=== PATIENT | female | born 1990 | race Caucasian/White ===

== ENCOUNTER 2024-01-11 14:49 | Outpatient (OUT) | payer BC, SELFPAY ==
--- NOTE | 2024-01-11 | XR_ITS ---
The [address] [address] Patient Name: CHANDNI RHODES MRN: [id number] date: 1990 Sex: F Assigned Patient Location: Current Patient Location: Accession/Order Number: [id number] Exam Date: 01/11/2024 14:50 Report Date: 01/14/2024 07:57 At the request of: TITUS PABLO Procedure: XR ankle RT min 3V PROCEDURE: XR ankle RT min 3V COMPARISON: None. HISTORY: RIGHT ANKLE PAIN FINDINGS: BONES:No acute fracture or dislocation. Moderate plantar enthesopathic spurring of the calcaneus SOFT TISSUES:Negative. No visible soft tissue swelling. EFFUSION:None visible. OTHER: Negative. XR/XR ankle RT min 3V IMPRESSION: Plantar enthesopathic spurring of the calcaneus Electronically authenticated by: JOÃO VICTORIA Date: 01/14/2024 07:57
== END 2024-01-11 14:50 | disposition home or self-care (01) ==
PROVIDERS: Visit Provider Physician Assistant
DX: M25.571 Pain in right ankle and joints of right foot (principal); M77.31 Calcaneal spur, right foot
CPT/HCPCS: 73610

== ENCOUNTER 2024-05-23 06:42 | Emergency (ER) | payer BC, SELFPAY ==
[2024-05-23 06:46] VITALS: BP 169/86; PULSE 98; TEMP 37; O2SAT 98; BMI 71.9
--- NOTE | 2024-05-23 07:08 | PC.NURSE ---
patient was prepping frozen chicken and using butter knife when it slipped and she cut her left ring finger and pinky under side. minimal pain. patient has hand wrapped. cleansed with soap and water. unapproximated.
[2024-05-23] MEDS: LIDOCAINE/EPINEPHRINE/TETRACAINE 3 ML GEL.PF.APP 1.5 ML TOPICAL (07:55)
[2024-05-23] MEDS: LIDOCAINE HCL 1% 100 MG/10 ML MDV INJ (08:47)
--- NOTE | 2024-05-23 11:09 | ED.GENADUL1 ---
HPI HPI - General Adult General Chief complaint: Wound/Laceration Stated complaint: WOUND CHECK, UPPER LEFT EXTREMITY Time Seen by Provider: 05/23/24 07:16 Source: patient Mode of arrival: walk-in History of Present Illness HPI narrative: 33-year-old female to the emergency department with chief complaint of laceration. She was attempting to remove the Styrofoam bottom off some frozen chicken with a butter knife when she slipped and hit her fourth and fifth digits on her left hand. This occurred approximately 30 minutes prior to arrival. No other injuries. Tetanus up-to-date. Related Data Home Medications ?Medication ?Instructions ?Recorded ?Confirmed albuterol sulfate 90 mcg/actuation 2 puff inhalation Q4H PRN 05/23/24 05/23/24 aerosol inhaler shortness of breath or wheezing dextroamphetamine-amphetamine ER 20 mg PO DAILY 05/23/24 05/23/24 20 mg 24hr capsule,extend release norgestimate 0.25 mg-ethinyl 1 tab PO DAILY 05/23/24 05/23/24 estradiol 35 mcg tablet (Geeta) sertraline 100 mg tablet 100 mg PO DAILY 05/23/24 05/23/24 Allergies Allergy/AdvReac Type Severity Reaction Status Date / Time No Known Drug Allergies Allergy Verified 05/23/24 06:50 Opioid HPI Opioid Management Most Recent Opioid Data: Last Pain Scale 3 05/23/24 07:06 05/23/24 Review of Systems ROS Status of ROS 10 or more systems reviewed and unremarkable except as noted in history and below Exam Narrative Exam Narrative: Left hand: There is a 1.2 cm linear laceration just distal to the PIP joint on the fifth digit. Extends into the fat. There is a 1.7 cm linear laceration just distal to the PIP joint on the fourth digit. Extends into the fat. Superficial and deep flexor tendons are intact by functional testing in each digit. No active bleeding. No foreign bodies. Constitutional Vital Signs, click to edit/add: Last Vital Signs Temp 98.6 F 05/23/24 06:46 Pulse 98 H 05/23/24 06:46 Resp 18 05/23/24 06:46 BP 169/86 H 05/23/24 06:46 Pulse Ox 98 05/23/24 06:46 O2 Del Method Room Air 05/23/24 06:46 Course Vital Signs Vital signs: Vital Signs Temperature 98.6 F 05/23/24 06:46 Pulse Rate 98 H 05/23/24 06:46 Respiratory Rate 18 05/23/24 06:46 Blood Pressure 169/86 H 05/23/24 06:46 Pulse Oximetry 98 05/23/24 06:46 Oxygen Delivery Method Room Air 05/23/24 06:46 Temperature 98.6 F 05/23/24 06:46 Pulse Rate 98 H 05/23/24 06:46 Respiratory Rate 18 05/23/24 06:46 Blood Pressure 169/86 H 05/23/24 06:46 Pulse Oximetry 98 05/23/24 06:46 Oxygen Delivery Method Room Air 05/23/24 06:46 Medical Decision Making MDM Narrative Medical decision making narrative: 33-year-old female to the emergency department chief complaint of lacerations to her fourth and fifth digits on her left hand. Vital stable, the patient is afebrile. Lacerations were repaired uneventfully. Her flexor tendons are intact. No bleeding. Wounds were irrigated thoroughly. No evidence of infection or foreign body. Discussed wound care. Placed in a foam aluminum splint to protect the sutures for the first 48 hours. She will follow-up with her doctor or ER for repeat evaluation. Discussed signs of infection and return. All questions were answered. The patient was discharged home. Medical Records Medical records reviewed: Yes I reviewed the patient's medical records Discharge Plan Discharge Chief Complaint: Wound/Laceration Clinical Impression: Laceration Patient Disposition: Home, Self-Care Time of Disposition Decision: 09:06 Condition: Good Mode of Transportation: Private Vehicle Prescriptions / Home Meds: No Action norgestimate-ethinyl estradiol [Geeta] 0.25-35 mg-mcg tablet 1 tab PO DAILY sertraline 100 mg tablet 100 mg PO DAILY dextroamphetamine-amphetamine 20 mg capsule,extended release 24hr 20 mg PO DAILY albuterol sulfate 90 mcg/actuation HFA aerosol inhaler 2 puff INHALATION Q4H PRN (Reason: shortness of breath or wheezing) Print Language: Romanian Instructions: Care For Your Stitches (ED) Additional Instructions: Keep original bandage on for 48 hours after which the wound may be open to the air. You may gently clean the site with soap and water twice daily after 48 hours. You can apply anti-bacterial ointment to the wound twice daily after cleaning. Do not go swimming until sutures are removed and wound has healed completely. rivet bucker cosmetic appearance of the wound will be best with decreased sun exposure and application of sunscreen for the first year following suture removal. Seek medical care if your wound develops increasing redness, warmth, swelling, or purulent discharge. Your sutures will need to be removed in 5-7 days by a healthcare provider so the wound can be re- examined. Referrals: Physician,Non-Staff, MD [Primary Care Provider] - 1 week Discharge Date/Time: 05/23/24 09:16 Procedures ED Procedure Instructions Procedures Procedures: Laceration Repair Verbal consent was obtained for laceration repair. Lidocaine infiltration for local anesthesia. Wound was cleansed and then irrigated with normal saline under pressure. Wound explored. No foreign bodies were identified. 3x 4-O simple interrupted sutures were used to repair the laceration on the fifth digit. 3x 4-O simple interrupted sutures were used to repair the laceration on the fourth digit. Adequate wound approximation was obtained. The patient tolerated the procedure well and there were no complications. Reuben Perez DO
== END 2024-05-23 09:16 | disposition home or self-care (01) ==
PROVIDERS: Emergency Provider Student in an Organized Health Care Education/Training Program
DX: S61.215A Laceration without foreign body of left ring finger without damage to nail, initial encounter (principal); S61.217A Laceration without foreign body of left little finger without damage to nail, initial encounter; W26.0XXA Contact with knife, initial encounter
CPT/HCPCS: 12002; 99284

== ENCOUNTER 2024-06-24 08:38 | Outpatient (OUT) | payer BC, SELFPAY ==
--- NOTE | 2024-06-24 | XR_ITS ---
The [address] [address] Patient Name: CHANDNI RHODES MRN: [id number] date: 1990 Sex: F Assigned Patient Location: Current Patient Location: Accession/Order Number: [id number] Exam Date: 06/24/2024 08:46 Report Date: 06/25/2024 06:59 At the request of: KRISTEN XIE Procedure: XR hand LT min 3V PROCEDURE: XR hand LT min 3V HISTORY: LEFT HAND PAIN ; no known injury COMPARISON: None. FINDINGS: BONES:No fracture, acute abnormality, or significant arthropathy. SOFT TISSUES:No visible soft tissue swelling. EFFUSION:None visible. OTHER: Negative. XR/XR hand LT min 3V IMPRESSION: 1. No acute bone abnormality or significant degenerative changes. Electronically authenticated by: KRISTEN CISNEROS Date: 06/25/2024 06:59
--- OUTSIDE RECORDS SUMMARY | 2024-06-24 08:49 | XMS_ITS | CCD ---
Author Organization [facility] Care Team Providers Care Broaching Machine Set Up Operator Name Role Phone PROVIDER, UNKNOWN Attending Unavailable PROVIDER, UNKNOWN Admitting Unavailable Arin Toure Unavailable MERVAT VAZQUEZ Admitting Unavailable MERVAT VAZQUEZ Attending Unavailable DR DAMARIS HICKMAN Primary Care Unavailable RAHUL VAZQUEZHLEEN Consulting Unavailable Rine, CFNP Michael L Primary Care Provider DO Mervat Vazquez Attending Provider Visckaren, Valdemar Admit Provider Visci DO Valdemar Attending Provider Rine CFNP Michael L Primary Care Provider ALEJANDRO Myers Attending Provider Rine, Michael L Primary Care Unavailable Justo Myers Admitting Unavailable Justo Myers Attending Unavailable Ishan, Michael L Primary Care Unavailable RinMervat arana Admitting Unavailable RinMervat arana Attending Unavailable Rine, Michael L Primary Care Unavailable Visci, Valdemar Admitting Unavailable Visci, Valdemar Attending Unavailable Rine RESEARCH LIBRARIAN Michael L Unavailable Unallocated, Noms Provider Primary Care Provider Unallocated , Noms Provider Primary Care Provi umair Justo Myers NP Unavailable Unallocated MD, Noms Provider Primary Care Provi umair Lorie-Genie SPANISH LITERATURE PROFESSOR-Stormy VALDERRAMA M Unavailable Unavailable Primary Care Provider UnavailRORY Anne Attending Unavailable JUSTO MYERS Attending Unavailable JUSTO MYERS Attending Unavailable STORMY MOY Attending Unavailab MICHAEL Cid Referring Unavailable JUSTO MYERS Attending Unavailable KEELY HAN Attending Unavailable MICHAEL HUTCHINSON Attending Unavailable JUSTO MYERS Attending Unavailable JUSTO MYERS Attending Unavailable MERVAT VAZQUEZ Attending Unavailable Allergies Allergy Classification Reported Allergen(s) Allergy Type Date of Onset Reaction(s) Facility (3 sources) Pollen; Translations: [pollen extracts] Allergy to substance 1 Sneezing [facility] (20 sources) Pollen Propensity to adverse reactions 3 Other [facility] (20 sources) Cat Hair Extract Allergy to substance 3 Unknown [facility] Work Phone: (20 sources) Dog Epithelium Allergy Skin Test Allergy to substance 3 Unknown [facility] (2 sources) Bee pollen; Translations: [BEE POLLEN] Drug Allergy 3 Unknown [facility] Work Phone: (2 sources) dog skin extract; Translations: [DOG EPITHELIUM ALLERGENIC EXTRACT] Drug Allergy 3 Other [facility] Work Phone: (2 sources) Cat Dander; Translations: [CAT DANDER] Allergy to substance 3 Unknown [facility] Work Phone: Medications Current Medications Medication Drug Class(es) Dates Sig (Normalized) Sig (Original) [id number] actuat albuterol 0.09 mg/actuat metered dose inhaler (20 sources) beta2-Adrenergic Agonist Start: 11-29-2023 End: 11-28-2024 take 2 puff(s) by inhalation every four hours for wheezing albuterol HFA (ProAir HFA) 90 mcg/act inhaler Indications: Acute cough Inhale 2 puffs every 4 (four) hours if needed for wheezing 18 g 11 11/29/2023 11/28/2024 Active ALPRAZolam 0.25 mg oral tablet (20 sources) Benzodiazepine Start: 03-20-2023 take 1 tablet by mouth once daily as needed for anxiety ALPRAZolam (Xanax) 0.25 MG tablet Indications: Anxiety attack (CMS/HCC) Take 1 tablet (0.25 mg) by mouth Daily as needed for anxiety. 30 tablet 03/20/2023 Active amoxicillin 875 mg / clavulanate 125 mg oral tablet (1 source) Penicillin-class Antibacterial Start: 06-05-2024 End: 06-12-2024 take 1 tablet by mouth twice daily amoxicillin-pot clavulanate (Augmentin) 875-125 mg tablet Indications: Rhinosinusitis Take 1 tablet by mouth 2 times a day for 7 days. 14 tablet 06/05/2024 06/12/2024 Active 24 hr amphetamine aspartate 7.5 mg / amphetamine sulfate 7.5 mg / dextroamphetamine saccharate 7.5 mg / dextroamphetamine sulfate 7.5 mg extended release oral capsule (20 sources) Central Nervous System Stimulant Start: 01-02-2024 End: 06-28-2024 take 1 capsule by mouth once daily amphetamine-dextro amphetamine XR (Adderall XR) 30 MG 24 hr capsule Indications: Attention deficit hyperactivity disorder (ADHD), predominantly inattentive type (CMS/HCC) Take 1 capsule (30 mg) by mouth Daily Do not crush or chew. 30 capsule 05/29/2024 06/28/2024 Active Start: 12-25-2023 End: 01-02-2024 take 1 capsule by mouth every twenty-four hours in the morning amphetamine-dextroamphetamine XR (Addera ll XR) 20 MG 24 hr capsule Indications: Attention deficit hyperactivity disorder (ADHD), predominantly inattentive type (CMS/HCC) Take 1 capsule (20 mg) by mouth in the morning. 30 capsule 12/25/2023 01/02/2024 Discontinued Start: 06-08-2023 take 1 capsule by mo [facility] every twenty-four hours in the morning amphetamine-dextroamphetamine XR (Addera ll XR) 20 MG 24 hr capsule Indications: Attention deficit hyperactivity disorder (ADHD), predominantly inattentive type (CMS/HCC) Take 1 capsule (20 mg) by mouth in the morning. 30 capsule 0 06/08/2023 Active take 1 tablet by sophia th twice daily Amphetamine-Dextroamphetamine 15 MG (Schedule II Drug) TAKE 1 TABLET TWICE A DAY Oral for 30 Not-Taking cetirizine hydrochloride 10 mg oral tablet (1 source) Histamine-1 Receptor Antagonist Start: 09-19-2021 take 1 tablet by mouth once daily Cetirizine HCl 10 MG 1 tablet Orally Once a day for 30 day(s) September, Active ethinyl estradiol 0.02 mg / norethindrone acetate 1 mg oral tablet (6 sources) Estrogen Start: 05-30-2024 End: 05-30-2025 norethindrone-ethinyl estradiol (Microgestin 06/03) 1-20 MG-MCG tablet Indications: Surveillance of contraceptive pill Take 1 tablet by mouth Daily Continuous active pills only 84 tablet 5 05/30/2024 05/30/2025 Active ethinyl estradiol 0.035 mg / norgestimate 0.25 mg oral tablet (4 sources) Progestin, Estrogen Start: 02-20-2024 End: 02-19-2025 take 1 tablet by mouth once daily norgestimate-ethinyl estradiol (Sprintec 28) 0.25-35 MG-MCG tablet Indications: Irregular menstrual cycle Take 1 tablet by mouth Daily 28 tablet 12 02/20/2024 03/21/2024 Discontinued ibuprofen 600 mg oral tablet (3 sources) Nonsteroidal Anti-inflammatory Drug Start: 11-18-2020 take 600 mg by mouth every six hours Ibuprofen Active 600 MG PO Q6H November 17, 2020 11:00pm methylPREDNISolone 4 mg oral tablet (1 source) Corticosteroid Start: 09-19-2021 methylPREDNISolone 4 MG as directed Orally Once a day for 6 days September, Active montelukast 10 mg oral tablet (20 sources) Leukotriene Receptor Antagonist Start: 11-10-2023 End: 11-09-2024 take 1 tablet by mouth at bedtime montelukast (Singulair) 10 MG tablet Indications: Acute cough Take 1 tablet (10 mg) by mouth at bedtime 30 tablet 11 11/10/2023 11/09/2024 Active Start: 11-16-2020 End: 10-16-2022 take 1 tablet by mouth once daily Montelukast (Singulair) 10 mg Tablet Discontinued 10 MG PO Daily November 15, 2020 11:00pm October 16, 2022 7:40pm Multiple Vitamin (multivitamin) tablet (15 sources) take 1 tablet by mouth once daily Multiple Vitamin (multivitamin) tablet Take 1 tablet by mouth Daily Active Viexnavr-Njc-Rc-Fa (3 sources) Start: 11-16-2020 take 1 tablet by mouth once daily Ohysblan-Rdd-Te-Fa Active TAB PO Daily November 15, 2020 11:00pm Start: 11-16-2020 take 1 tablet by sophia th once daily Vjkaqcbu-Rsf-Ga-Fa Active TAB PO Daily November 16, 2020 12:00am Start: 11-16-2020 take 1 tablet by mouth once Pr enatal Mqfaimkd-Izt-Ab-Fa Active TAB PO November 16, 2020 12:00am sertraline 100 mg oral tablet (20 sources) Serotonin Reuptake Inhibitor Start: 08-10-2023 End: 01-02-2024 take 1 tablet by mouth once daily sertraline (Zoloft) 100 MG tablet Indications: Anxiety Take 1 tablet (100 mg) by mouth Daily 90 tablet 1 01/02/2024 Active Start: 05-31-2023 End: 06-27-2023 sertraline (Zoloft) 50 MG ta blet Indications: Anxiety TAKE 1/2 TABLET AT BEDTIME FOR FIRST 4 NIGHTS,THEN 1 TABLET AT NIGHT THEREAFTER 90 tablet 1 06/27/2023 Active SUMAtriptan 25 mg oral tablet (11 sources) Serotonin-1b and Serotonin-1d Receptor Agonist Start: 03-21-2024 SUMAtriptan (Imitrex ) 25 MG tablet Indications: Chronic nonintractable headache, unspecified headache type Take 1 tablet (25 mg) by mouth 1 (one) time if needed for migraine for up to 9 doses May repeat dose once in 2 hours if no relief. Do not exceed 2 doses in 24 hours. 9 tablet 03/21/2024 Active Completed/Discontinued Medications Medication Drug Class(es) Dates Sig (Normalized) Sig (Original) breath-actuated 120 actuat beclomethasone dipropionate 0.08 mg/actuat metered dose inhaler (3 sources) Corticosteroid Start: 11-28-2023 End: 01-02-2024 Beclomethasone Diprop HFA (Qvar RediHaler) 80 MCG/ACT inhaler Indications: Acute cough Inhale 2 Inhalation in the morning and 2 Inhalation before bedtime. Rinse mouth with water after use to reduce aftertaste and incidence of candidiasis. Do not swallow.. 10.6 g 2 11/28/2023 01/02/2024 Discontinued (Therapy completed) loratadine 10 mg oral tablet (3 sources) End: 01-02-2024 loratadine (Claritin) 10 MG tablet Take by mouth Daily as needed for allergies 01/02/2024 Discontinued (Therapy completed) norethindrone 0.35 mg oral tablet (7 sources) Start: 03-21-2024 End: 03-21-2025 take 1 tablet by mouth once daily norethindrone (Micronor) 0.35 MG tablet Indications: Chronic nonintractable headache, unspecified headache type Take 1 tablet (0.35 mg) by mouth Daily 28 tablet 11 03/21/2024 05/30/2024 Discontinued (Ineffective) Suprep Bowel Prep . (1 source) Start: 11-23-2015 Suprep Bowel Prep . as directed Orally as directed for 1 day(s) Nov, Not-Taking traZODone hydrochloride 100 mg oral tablet (1 source) Serotonin Reuptake Inhibitor take 1 tablet by mouth every twenty-four hours traZODone HCl 100 MG 1 tablet at bedtime Orally Once a day Not-Taking venlafaxine 50 mg oral tablet (1 source) Serotonin and Norepinephrine Reuptake Inhibitor take 1 tablet by mouth twice daily at mealtime Effexor 50 MG 1 tablet with food Orally Twice a day Not-Taking Problems Active Problems Problem Classification Problem Date Documented Date Episodic/Chronic Anxiety disorders (20 sources) Anxiety; Translations: [Anxiety disorder, unspecified] Onset: 09-28-2022 Resolved: 02-19-2023 06-27-2023 Chronic Attention-deficit, conduct, and disruptive behavior disorders (20 sources) Attention deficit hyperactivity disorder; Translations: [Attention-deficit hyperactivity disorder, unspecified type] Onset: 09-28-2022 09-28-2022 Chronic Attention-deficit, conduct, and disruptive behavior disorders (9 sources) Attention deficit hyperactivity disorder, predominantly inattentive type; Translations: [Attention-deficit hyperactivity disorder, predominantly inattentive type] 03-01-2024 Chronic Contraceptive and procreative management (2 sources) Oral contraception; Translations: [Encounter for surveillance of contraceptive pills] 05-30-2024 Episodic Diabetes mellitus without complication (1 source) Other abnormal glucose; Translations: [Other abnormal glucose] Onset: 06-16-2023 Episodic Diabetes or abnormal glucose tolerance complicating ; childbirth; or the puerperium (4 sources) Abnormal glucose complicating ; Translations: [ABNORMAL GLUCOSE COMP ] Onset: 07-30-2022 Episodic Headache; including migraine (2 sources) Headache; Translations: [Chronic nonintractable headache, unspecified headache type] 03-21-2024 Episodic Immunizations and screening for infectious disease (4 sources) Needs influenza immunization; Translations: [Encounter for immunization] 02-15-2024 Episodic Other female genital disorders (3 sources) H/O: normal delivery; Translations: [Status post normal vaginal delivery] 10-17-2022 Episodic Other injuries and conditions due to external causes (2 sources) Injury of flexor tendon of hand; Translations: [Unspecified injury of other specified muscles, fascia and tendons at wrist and hand level, left hand, subsequent encounter] 06-17-2024 Episodic Other upper respiratory disease (1 source) Allergic rhinitis, unspecified Onset: 09-19-2021 Resolved: 09-19-2021 Chronic Other upper respiratory infections (3 sources) Chronic sinusitis, unspecified; Translations: [Unspecified sinusitis (chronic)] Onset: 06-05-2024 06-05-2024 Chronic Unclassified (1 source) Obesity complicating , third trimester; Translations: [Obesity complicating , third trimester] Onset: 10-16-2022 Unclassified (1 source) Encounter for screening for Streptococcus B; Translations: [Encounter for screening for Streptococcus B] Onset: 09-16-2022 Unclassified (20 sources) Patient on antidepressant monitoring plan Onset: 07-19-2023 07-19-2023 Unclassified (20 sources) Baseline PHQ-9 Onset: 07-19-2023 07-19-2023 Past or Other Problems Problem Classification Problem Date Documented Da te Episodic/Chronic Hemorrhage during ; abruptio placenta; placenta previa (20 sources) Bleeding from female genital tract during ; Translations: [Antepartum hemorrhage, unspecified, unspecified trimester] Onset: 08-07-2020 Resolved: 02-15-2024 08-29-2020 Episodic Hemorrhoids (20 sources) Internal hemorrhoids; Translations: [Other hemorrhoids] Onset: 09-28-2022 09-28-2022 Episodic Miscellaneous mental health disorders (20 sources) Primary insomnia; Translations: [Primary insomnia] Onset: 09-28-2022 Resolved: 01-02-2024 09-28-2022 Chronic Mood disorders (20 sources) Mood disorders Onset: 10-02-2023 10-02-2023 Nutritional deficiencies (20 sources) Vitamin D deficiency; Translations: [Vitamin D deficiency, unspecified] Onset: 09-28-2022 Resolved: 02-15-2024 09-28-2022 Chronic Other screening for suspected conditions (not mental disorders or infectious disease) (20 sources) Patient encounter status; Translations: [Encounter for other specified screening] Onset: 08-07-2020 Resolved: 02-19-2023 02-19-2023 Episodic Other upper respiratory disease (20 sources) Sinusitis; Translations: [Allergic rhinitis, unspecified] Onset: 02-17-2023 Resolved: 02-19-2023 02-19-2023 Chronic Other upper respiratory disease (20 sources) Seasonal allergic rhinitis; Translations: [Other seasonal allergic rhinitis] Onset: 09-28-2022 Resolved: 02-19-2023 02-19-2023 Chronic Residual codes; unclassified (1 source) 35 weeks gestation of ; Translations: [35 weeks gestation of ] Onset: 09-16-2022 Episodic Unclassified (1 source) Cough R05.9 Onset: 09-19-2021 Resolved: 09-19-2021 Results Test Name Value Interpretation Reference Range Facility A1C with Estimated Average G [facility] 06-16-2023 Glucose [Mass/Vol] 97 mg/dL Normal [facility] Comment on above: Order Comment: MC MYERS Result Comment: PERF ORMED BY: [facility] [address] [place] [address] PATHOLOGIST DISABILITIES CAREGIVER JONO MÉNDEZ M.D. Performed By: #### A 1C WTH eA, LIPID, [id number], CBC, CMP, TSH3 wRFLX #### [facility] [address] HbA1c (Bld) [Mass fraction] 5.0 % Normal 4.3-5.6 [facility] Comment on above: Order Comment: MC MYERS Result Comment: Incr eased risk for diabetes: 5.7 - 6.4 diabetes: >6.4 glycemic control for adults with diabetes: <7.0 Performed By: #### A 1C WTH eA, LIPID, [id number], CBC, CMP, TSH3 wRFLX #### [facility] [address] Alanine aminotransferase [En zymatic activity/volume] in Serum or PlasmaOrdered By: NON STAFF on 06-16-2023 ALT [Catalytic activity/Vol] 10 U/L 7-52 [facility] Albumin [Mass/volume] in Ser um or Plasma by Bromocresol green (BCG) dye binding methoOrdered By: NON STAFF on 06-16-2023 Albumin BCG dye [Mass/Vol] 4.6 g/dL 3.5-5.7 [facility] Alkaline phosphatase [Enzyma tic activity/volume] in Serum or PlasmaOrdered By: NON STAFF on 06-16-2023 ALP [Catalytic activity/Vol] 52 U/L 34-104 [facility] Aspartate aminotransferase [ Enzymatic activity/volume] in Serum or PlasmaOrdered By: NON STAFF on 06-16-2023 AST [Catalytic activity/Vol] 12 U/L 13-39 [facility] Basophils Auto (Bld) [#/Vol] Ordered By: NON STAFF on 06-16-2023 Basophils (Bld) [#/Vol] 0.1 10*3/uL 0.0-0.2 [facility] Basophils/100 WBC Auto (Bld) Ordered By: NON STAFF on 06-16-2023 Basophils/100 WBC (Bld) 1.2 % . [facility] Bilirubin.total [Mass/volume ] in Serum or PlasmaOrdered By: NON STAFF on 06-16-2023 Bilirubin [Mass/Vol] 0.9 mg/dL 0.3-1.0 [facility] Calcium [Mass/volume] in Ser um or PlasmaOrdered By: NON STAFF on 06-16-2023 Calcium [Mass/Vol] 9.5 mg/dL 8.6-10.3 [facility] Carbon dioxide, total [Moles /volume] in Serum or PlasmaOrdered By: NON STAFF on 06-16-2023 CO2 [Moles/Vol] 31.7 mmol/L 21.0-31.0 [facility] Chloride [Moles/volume] in [place] or PlasmaOrdered By: NON STAFF on 06-16-2023 Chloride [Moles/Vol] 103 mmol/L 98-107 [facility] Cholesterol [Mass/volume] in Serum or PlasmaOrdered By: NON STAFF on 06-16-2023 Cholesterol [Mass/Vol] 184 mg/dL 140-200 [facility] Comment on above: Chol less than 200 m g/dl low riskChol 201-239 mg/dl borderline riskChol 240 mg/dl and greater high risk Cholesterol in LDL Calc [Mas s/Vol]Ordered By: NON STAFF on 06-16-2023 Cholesterol in LDL [Mass/Vol] 120 mg/dL 0-100 [facility] Comment on above: LDL ATP III CLASSIFI CATIONLDL less than 100 mg/dL OptimalLDL 100-129 mg/dL Near or above optimalLDL 130-159 mg/dL Borderline highLDL 160-189 mg/dL HighLDL greater than 189 mg/dL Very high Cholesterol in VLDL Calc [Ma ss/Vol]Ordered By: NON STAFF on 06-16-2023 Cholesterol in VLDL [Mass/Vol] 18 mg/dL [facility] Complete Blood Count Auto Di ffon 06-16-2023 Basophils (Bld) [#/Vol] 0.1 10*3/uL Normal 0.0-0.2 [facility] Comment on above: Order Comment: MC MYERS Result Comment: PERF ORMED BY: [place] [address] PATHOLOGIST DISABILITIES CAREGIVER JONO MÉNDEZ M.D. Performed By: #### A 1C WTH eA, LIPID, [id number], CBC, CMP, TSH3 wRFLX #### [facility] [address] [place] [address] [place] Basophils/100 WBC (Bld) 1.2 % Normal . [facility] Comment on above: Order Comment: MC MYERS Performed By: #### A 1C WTH eA, LIPID, [id number], CBC, CMP, TSH3 wRFLX #### [facility] [address] [place] [address] Eosinophils (Bld) [#/Vol] 0.2 10*3/uL Normal 0.0-0.45 [facility] Comment on above: Order Comment: MC MYERS Performed By: #### A 1C WTH eA, LIPID, [id number], CBC, CMP, TSH3 wRFLX #### [address] Eosinophils/100 WBC (Bld) 2.2 % Normal . [facility] Comment on above: Order Comment: MC MYERS Performed By: #### A 1C WTH eA, LIPID, [id number], CBC, CMP, TSH3 wRFLX #### [address] Erythrocyte distribution width (RBC) [Ratio] 13.0 % Normal 11.9-15.3 [facility] Comment on above: Order Comment: MC MYERS Performed By: #### A 1C WTH eA, LIPID, [id number], CBC, CMP, TSH3 wRFLX #### [address] Hematocrit (Bld) [Volume fraction] 42.4 % Normal 34.0-46.4 [facility] Comment on above: Order Comment: MC MYERS Performed By: #### A 1C WTH eA, LIPID, [id number], CBC, CMP, TSH3 wRFLX #### [address] Hemoglobin (Bld) [Mass/Vol] 14.5 g/dL Normal 11.8-15.4 [facility] Comment on above: Order Comment: MC MYERS Performed By: #### A 1C WTH eA, LIPID, [id number], CBC, CMP, TSH3 wRFLX #### [address] Lymphocytes (Bld) [#/Vol] 1.6 10*3/uL Normal 1.00-4.8 [facility] Comment on above: Order Comment: MC MYERS Performed By: #### A 1C WTH eA, LIPID, [id number], CBC, CMP, TSH3 wRFLX #### [address] Lymphocytes/100 WBC (Bld) 22.4 % Normal . [facility] Comment on above: Order Comment: MC MYERS Performed By: #### A 1C WTH eA, LIPID, [id number], CBC, CMP, TSH3 wRFLX #### [address] MCH (RBC) [Entitic mass] 29.4 pg Normal 24.7-34.3 [facility] Comment on above: Order Comment: MC MYERS Performed By: #### A 1C WTH eA, LIPID, [id number], CBC, CMP, TSH3 wRFLX #### [address] MCV (RBC) [Entitic vol] 85.9 fL Normal 80-100 F [facility] Comment on above: Order Comment: MC MYERS Performed By: #### A 1C WTH eA, LIPID, [id number], CBC, CMP, TSH3 wRFLX #### [address] Mean Corpuscular HGB Conc 34.2 g/dL Normal 32.0-35.0 [facility] Comment on above: Order Comment: MC MYERS Performed By: #### A 1C WTH eA, LIPID, [id number], CBC, CMP, TSH3 wRFLX #### [address] Monocytes (Bld) [#/Vol] 0.4 10*3/uL Normal 0.0-0.8 [facility] Comment on above: Order Comment: MC MYERS Performed By: #### A 1C WTH eA, LIPID, [id number], CBC, CMP, TSH3 wRFLX #### [address] Monocytes/100 WBC (Bld) 5.9 % Normal . [facility] Comment on above: Order Comment: MC Carlene ESTHER Performed By: #### A 1C WTH eA, LIPID, [id number], CBC, CMP, TSH3 wRFLX #### [address] Neutrophils (Bld) [#/Vol] 5.0 10*3/uL Normal 1.8-7.7 [facility] Comment on above: Order Comment: MC Carlene ESTHER Performed By: #### A 1C WTH eA, LIPID, [id number], CBC, CMP, TSH3 wRFLX #### [address] Neutrophils/100 WBC (Bld) 68.3 % Normal . [facility] Comment on above: Order Comment: MC Carlene ESTHER Performed By: #### A 1C WTH eA, LIPID, [id number], CBC, CMP, TSH3 wRFLX #### [address] NRBC% 0.5 /100{WBC} Normal 0-0.5 [facility] Comment on above: Order Comment: MC Carlene ESTHER Performed By: #### A 1C WTH eA, LIPID, [id number], CBC, CMP, TSH3 wRFLX #### [address] Platelet mean volume (Bld) [Entitic vol] 8.1 fL Normal 6.3-10.7 [facility] Comment on above: Order Comment: MC MYERS Performed By: #### A 1C WTH eA, LIPID, [id number], CBC, CMP, TSH3 wRFLX #### [place] [address] [place] Platelets (Bld) [#/Vol] 393 10*3/uL Normal 150-450 [facility] Comment on above: Order Comment: MC Carlene ESTHER Performed By: #### A 1C WTH eA, LIPID, [id number], CBC, CMP, TSH3 wRFLX #### [place] [address] [place] RBC (Bld) [#/Vol] 4.94 10*6/uL Normal 3.60-5.00 [facility] Comment on above: Order Comment: MC MYERS Performed By: #### A 1C WTH eA, LIPID, [id number], CBC, CMP, TSH3 wRFLX #### [address] WBC (Bld) [#/Vol] 7.3 10*3/uL Normal 3.8-11.6 [facility] Comment on above: Order Comment: MC MYERS Performed By: #### A 1C WTH eA, LIPID, [id number], CBC, CMP, TSH3 wRFLX #### [address] Comprehensive Metabolic Pane hunter 06-16-2023 Albumin [Mass/Vol] 4.6 g/dL Normal 3.5-5.7 [facility] Comment on above: Order Comment: MC MYERS Performed By: #### A 1C WTH eA, LIPID, [id number], CBC, CMP, TSH3 wRFLX #### [address] Albumin/Globulin [Mass ratio] 1.8 {ratio} Normal [facility] Comment on above: Order Comment: MC MYERS Performed By: #### A 1C WTH eA, LIPID, [id number], CBC, CMP, TSH3 wRFLX #### [facility] [address] [place] [address] ALP [Catalytic activity/Vol] 52 U/L Normal 34-104 [facility] Comment on above: Order Comment: MC MYERS Performed By: #### A 1C WTH eA, LIPID, [id number], CBC, CMP, TSH3 wRFLX #### [address] ALT [Catalytic activity/Vol] 10 U/L Normal 7-52 [facility] Comment on above: Order Comment: MC MYERS Performed By: #### A 1C WTH eA, LIPID, [id number], CBC, CMP, TSH3 wRFLX #### [facility] [address] Anion gap [Moles/Vol] 8.8 mmol/L Normal 6.0-15.0 [facility] Comment on above: Order Comment: MC MYERS Performed By: #### A 1C WTH eA, LIPID, [id number], CBC, CMP, TSH3 wRFLX #### [facility] [address] AST [Catalytic activity/Vol] 12 U/L Low 13-39 [facility] Comment on above: Order Comment: MC MYERS Performed By: #### A 1C WTH eA, LIPID, [id number], CBC, CMP, TSH3 wRFLX #### [facility] [address] Bilirubin [Mass/Vol] 0.9 mg/dL Normal 0.3-1.0 [facility] Comment on above: Order Comment: MC MYERS Performed By: #### A 1C WTH eA, LIPID, [id number], CBC, CMP, TSH3 wRFLX #### [facility] [address] Calcium [Mass/Vol] 9.5 mg/dL Normal 8.6-10.3 [facility] Comment on above: Order Comment: [facility] MYERS Performed By: #### A 1C WTH eA, LIPID, [id number], CBC, CMP, TSH3 wRFLX #### [facility] [address] Chloride [Moles/Vol] 103 mmol/L Normal 98-107 [facility] Comment on above: Order Comment: [facility] MYERS Performed By: #### A 1C WTH eA, LIPID, [id number], CBC, CMP, TSH3 wRFLX #### [facility] [address] CO2 [Moles/Vol] 31.7 mmol/L High 21.0-31.0 [facility] Comment on above: Order Comment: [facility] MYERS Performed By: #### A 1C WTH eA, LIPID, [id number], CBC, CMP, TSH3 wRFLX #### [facility] [address] Creatinine [Mass/Vol] 0.76 mg/dL Normal 0.60-1.20 [facility] Comment on above: Order Comment: [facility] MYERS Performed By: #### A 1C WTH eA, LIPID, [id number], CBC, CMP, TSH3 wRFLX #### [facility] [address] GFR/1.73 sq M.predicted MDRD (S/P/Bld) [Vol rate/Area] mL/min/{1.73_m2} Normal [facility] Comment on above: Order Comment: [facility] MYERS Performed By: #### A 1C WTH eA, LIPID, [id number], CBC, CMP, TSH3 wRFLX #### [address] Globulin (S) [Mass/Vol] 2.6 g/dL Normal [facility] Comment on above: Order Comment: [facility] MYERS Performed By: #### A 1C WTH eA, LIPID, [id number], CBC, CMP, TSH3 wRFLX #### [address] Glucose [Mass/Vol] 99 mg/dL Normal 70-100 [facility] Comment on above: Order Comment: [facility] MYERS Result Comment: [place] Glucose Reference Range is dependent on time and content of last meal. Glucose of more than 200 mg/dL in a nonstressed, ambulatory subject supports the diagnosis of Diabetes Mellitus. ADA recommended reference range Performed By: #### A 1C WTH eA, LIPID, [id number], CBC, CMP, TSH3 wRFLX #### [address] Potassium [Moles/Vol] 4.5 mmol/L Normal 3.5-5.1 [facility] Comment on above: Order Comment: [facility] MYERS Performed By: #### A 1C WTH eA, LIPID, [id number], CBC, CMP, TSH3 wRFLX #### [facility] [address] [place] [address] [place] Protein [Mass/Vol] 7.2 g/dL Normal 6.4-8.9 [facility] Comment on above: Order Comment: [facility] MYERS Performed By: #### A 1C WTH eA, LIPID, [id number], CBC, CMP, TSH3 wRFLX #### [facility] [address] Sodium [Moles/Vol] 139 mmol/L Normal 136-145 [facility] Comment on above: Order Comment: [facility] MYERS Performed By: #### A 1C WTH eA, LIPID, [id number], CBC, CMP, TSH3 wRFLX #### [facility] [address] [place] [address] [place] Urea nitrogen [Mass/Vol] 16 mg/dL Normal 7-25 [facility] Comment on above: Order Comment: [facility] MYERS Performed By: #### A 1C WTH eA, LIPID, [id number], CBC, CMP, TSH3 wRFLX #### [facility] [address] Creatinine [Mass/volume] in Serum or PlasmaOrdered By: NON STAFF on 06-16-2023 Creatinine [Mass/Vol] 0.76 mg/dL 0.60-1.20 [facility] Eosinophils Auto (Bld) [#/Vo l]Ordered By: NON STAFF on 06-16-2023 Eosinophils (Bld) [#/Vol] 0.2 10*3/uL 0.0-0.45 [facility] Eosinophils/100 WBC Auto (Bl d)Ordered By: NON STAFF on 06-16-2023 Eosinophils/100 WBC (Bld) 2.2 % . [facility] Erythrocyte distribution wid th Auto (RBC) [Ratio]Ordered By: NON STAFF on 06-16-2023 Erythrocyte distribution width (RBC) [Ratio] 13.0 % 11.9-15.3 [facility] Globulin Calc (S) [Mass/Vol] Ordered By: NON STAFF on 06-16-2023 Globulin (S) [Mass/Vol] 2.6 g/dL [facility] Glucose [Mass/volume] in Ser um or PlasmaOrdered By: NON STAFF on 06-16-2023 Glucose [Mass/Vol] 99 mg/dL 70-100 [facility] Comment on above: ADA recommended refe rence rangeRandom Glucose Reference Range is dependent on time and content of last meal. Glucose of more than 200 mg/dL in a nonstressed, ambulatory subject supports the diagnosis of Diabetes Mellitus. Glucose mean value [Mass/vol ume] in Blood Estimated from glycated hemoglobinOrdered By: NON STAFF on 06-16-2023 Average glucose Estimated from glycated hemoglobin (Bld) [Mass/Vol] 97 mg/dL [facility] Hematocrit Auto (Bld) [Volum e fraction]Ordered By: NON STAFF on 06-16-2023 Hematocrit (Bld) [Volume fraction] 42.4 % 34.0-46.4 [facility] Hemoglobin A1c percentageOrd ered By: NON STAFF on 06-16-2023 HbA1c (Bld) [Mass fraction] 5.0 % 4.3-5.6 [facility] Comment on above: Increased risk for d iabetes: 5.7 - 6.4diabetes: >6.4glycemic control for adults with diabetes: <7.0 Hemoglobin [Mass/volume] in BloodOrdered By: NON STAFF on 06-16-2023 Hemoglobin (Bld) [Mass/Vol] 14.5 g/dL 11.8-15.4 [facility] Leukocytes [#/volume] correc joe for nucleated erythrocytes in Blood by Automated counOrdered By: NON STAFF on 06-16-2023 WBC corrected for nucl RBC Auto (Bld) [#/Vol] 7.3 10*3/uL 3.8-11.6 [facility] Lipid Panelon 06-16-2023 Cholesterol [Mass/Vol] 184 mg/dL Normal 140-200 [facility] Comment on above: Order Comment: [facility] MYERS Result Comment: Chol less than 200 mg/dl low risk Chol 201-239 mg/dl borderline risk Chol 240 mg/dl and greater high risk Performed By: #### A 1C [facility], LIPID, [id number], CBC, CMP, TSH3 wRFLX #### [facility] [address] Cholesterol in HDL [Mass/Vol] 46 mg/dL Normal 23-92 [facility] Comment on above: Order Comment: [facility] MYERS Result Comment: HDL CHOL ATP-III CLASSIFICATION Cardiovascular Risk HDL > or equal to 60 mg/dL LOW HDL < 40 mg/dL HIGH Performed By: #### A 1C WTH eA, LIPID, [id number], CBC, CMP, TSH3 wRFLX #### [facility] [address] Cholesterol.total/[place] sterol in HDL [Mass ratio] 4.0 {ratio} Normal <5.0 [facility] Comment on above: Order Comment: MC MYERS Performed By: #### A 1C WTH eA, LIPID, [id number], CBC, CMP, TSH3 wRFLX #### [address] LDL Cholesterol,Calculated 120 mg/dL High 0-100 [facility] Comment on above: Order Comment: MC MYERS Result Comment: LDL ATP III CLASSIFICATION LDL less than 100 mg/dL Optimal LDL 100-129 mg/dL Near or above optimal LDL 130-159 mg/dL Borderline high LDL 160-189 mg/dL High LDL greater than 189 mg/dL Very high Performed By: #### A 1C WTH eA, LIPID, [id number], CBC, CMP, TSH3 wRFLX #### [facility] [address] Triglyceride w/Reflex 92 mg/dL Normal 0-149 [facility] Comment on above: Order Comment: MC MYERS Result Comment: TRIG ATP III CLASSIFICATION TRIG less than 150 mg/dL Normal TRIG 150-199 mg/dL Borderline high TRIG 200-500 mg/dL High TRIG greater than 500 mg/dL Very high Standard traceable to the Center for Disease Conrtrol and Prevention (CDC) test method. Performed By: #### A 1C WTH eA, LIPID, [id number], CBC, CMP, TSH3 wRFLX #### [facility] [address] VLDL CHOLESTEROL 18 mg/dL Normal [facility] Comment on above: Order Comment: MC MYERS Performed By: #### A 1C WTH eA, LIPID, [id number], CBC, CMP, TSH3 wRFLX #### [facility] [address] Lymphocytes Auto (Bld) [#/Vo l]Ordered By: NON STAFF on 06-16-2023 Lymphocytes (Bld) [#/Vol] 1.6 10*3/uL 1.00-4.8 [facility] Lymphocytes/100 WBC Auto (Bl d)Ordered By: NON STAFF on 06-16-2023 Lymphocytes/100 WBC (Bld) 22.4 % . [facility] MCH Auto (RBC) [Entitic mass ]Ordered By: NON STAFF on 06-16-2023 MCH (RBC) [Entitic mass] 29.4 pg 24.7-34.3 [facility] MCHC Auto (RBC) [Mass/Vol]Or dered By: NON STAFF on 06-16-2023 MCHC (RBC) [Mass/Vol] 34.2 g/dL 32.0-35.0 [facility] MCV Auto (RBC) [Entitic vol] Ordered By: NON STAFF on 06-16-2023 MCV (RBC) [Entitic vol] 85.9 fL 80-100 [facility] Monocytes Auto (Bld) [#/Vol] Ordered By: NON STAFF on 06-16-2023 Monocytes (Bld) [#/Vol] 0.4 10*3/uL 0.0-0.8 [facility] Monocytes/100 WBC Auto (Bld) Ordered By: NON STAFF on 06-16-2023 Monocytes/100 WBC (Bld) 5.9 % . [facility] Neutrophils Auto (Bld) [#/Vo l]Ordered By: NON STAFF on 06-16-2023 Neutrophils (Bld) [#/Vol] 5.0 10*3/uL 1.8-7.7 [facility] Neutrophils/100 WBC Auto (Bl d)Ordered By: NON STAFF on 02-02-2024 Neutrophils/100 WBC (Bld) 68.3 % . [facility] No Panel InformationOrdered By: NON STAFF on 06-16-2023 Estimated GFR (CKD-EPI) > 60.0 mL/Min [facility] Creatinine Clearance (Chem N/A [facility] Nucleated erythrocytes [Pres ence] in Blood by Automated countOrdered By: NON STAFF on 06-16-2023 Nucleated RBC Auto Ql (Bld) 0.5 /100{WBC} 0-0.5 [facility] Platelet mean volume Auto (B ld) [Entitic vol]Ordered By: NON STAFF on 06-16-2023 Platelet mean volume (Bld) [Entitic vol] 8.1 fL 6.3-10.7 [facility] Platelets Auto (Bld) [#/Vol] Ordered By: NON STAFF on 06-16-2023 Platelets (Bld) [#/Vol] 393 10*3/uL 150-450 [facility] Potassium [Moles/volume] in Serum or PlasmaOrdered By: NON STAFF on 06-16-2023 Potassium [Moles/Vol] 4.5 mmol/L 3.5-5.1 [facility] Protein [Mass/volume] in Ser um or PlasmaOrdered By: NON STAFF on 06-16-2023 Protein [Mass/Vol] 7.2 g/dL 6.4-8.9 [facility] RBC Auto (Bld) [#/Vol]Ordere d By: NON STAFF on 06-16-2023 RBC (Bld) [#/Vol] 4.94 10*6/uL 3.60-5.00 [facility] Serum or plasma albumin/glob ulin mass ratioOrdered By: NON STAFF on 06-16-2023 Albumin/Globulin [Mass ratio] 1.8 {ratio} [facility] Serum or plasma anion gap de terminationOrdered By: NON STAFF on 06-16-2023 Anion gap [Moles/Vol] 8.8 mmol/L 6.0-15.0 [facility] Serum or plasma high density lipoprotein (HDL) cholesterol measurementOrdered By: NON STAFF on 06-16-2023 Cholesterol in HDL [Mass/Vol] 46 mg/dL 23-92 [facility] Comment on above: HDL CHOL ATP-III CLA SSIFICATION Cardiovascular RiskHDL > or equal to 60 mg/dL LOWHDL < 40 mg/dL HIGH Serum or plasma total choles terol/high density lipoprotein (HDL) cholesterol mass ratOrdered By: NON STAFF on 06-16-2023 Cholesterol.total/[place] sterol in HDL [Mass ratio] 4.0 {ratio} <5.0 [facility] Sodium [Moles/volume] in Ser um or PlasmaOrdered By: NON STAFF on 06-16-2023 Sodium [Moles/Vol] 139 mmol/L 136-145 [facility] Thyroid Stim Hormone w/Rflxo n 06-16-2023 Thyroid Stim Hormone w/Rflx 0.78 u[iU]/mL Normal 0.45-5.33 [facility] Comment on above: Order Comment: MC MYERS Performed By: #### A 1C WTH eA, LIPID, [id number], CBC, CMP, TSH3 wRFLX #### [address] Thyrotropin [Units/volume] i n Serum or PlasmaOrdered By: NON STAFF on 06-16-2023 TSH Qn 0.78 m[IU]/L 0.45-5.33 [facility] Triglyceride [Mass/volume] i n Serum or PlasmaOrdered By: NON STAFF on 06-16-2023 Triglyceride [Mass/Vol] 92 mg/dL 0-149 [facility] Comment on above: TRIG ATP III CLASSIF ICATIONTRIG less than 150 mg/dL NormalTRIG 150-199 mg/dL Borderline highTRIG 200-500 mg/dL High TRIG greater than 500 mg/dL Very highStandard traceable to the Center for Disease Conrtrol and Prevention (CDC) test method. Urea nitrogen [Mass/volume] in Serum or PlasmaOrdered By: NON STAFF on 06-16-2023 Urea nitrogen [Mass/Vol] 16 mg/dL 7-25 [facility] Vitamin D 25 Hydroxy Totalon 06-16-2023 Vitamin D 25 Hydroxy Total 36.3 ng/mL Normal 30-100 [facility] Comment on above: Order Comment: MC MYERS Result Comment: [place] MIN D STATUS 25(OH)VITAMIN D RANGE (ng/mL) Deficient <20 Insufficient 20 to <30 Sufficient 30 to 100 Reference: Chinmay Kellogg, Stephanie WATERS, et al. Evaluation,treatment, and prevention of vitamin D deficiency; an Endocrine Society clinical practice guideline. JCEM. 2010; 96(7):1911-. PERFORMED BY: [facility] [address] [place] [address] PATHOLOGIST DISABILITIES CAREGIVER JONO MÉNDEZ M.D. Performed By: #### A 1C WTH eA, LIPID, [id number], CBC, CMP, TSH3 wRFLX #### [facility] [address] Vitamin D+Metabolites [Mass/ volume] in Serum or PlasmaOrdered By: NON STAFF on 06-16-2023 Vitamin D+Metabolites [Mass/Vol] 36.3 ng/mL 30-100 [facility] Comment on above: VITAMIN D STATUS 25( [place])VITAMIN D RANGE (ng/mL) Deficient <20 Insufficient 20 to <30Sufficient 30 to 100Reference: Chinmay Kellogg, Stephanie WATERS, et al. Evaluation,treatment, and prevention of vitamin D deficiency; an Endocrine Society clinical practice guideline. JCEM. 2010; 96(7):1911-30. WBC Auto (Bld) [#/Vol]Ordere d By: NON STAFF on 06-16-2023 WBC (Bld) [#/Vol] 7.3 10*3/uL 3.8-11.6 [facility] Basophils Auto (Bld) [#/Vol] Ordered By: Valdemar Martinez on 10-17-2022 Basophils (Bld) [#/Vol] 0.1 10*3/uL 0.0-0.2 [facility] Basophils/100 WBC Auto (Bld) Ordered By: Valdemar Martinez on 10-17-2022 Basophils/100 WBC (Bld) 0.3 % . [facility] Complete Blood Count Auto Di ffon 10-17-2022 Basophils (Bld) [#/Vol] 0.1 10*3/uL Normal 0.0-0.2 [facility] Comment on above: Order Comment: MC MYERS Result Comment: PERF ORMED BY: [place] [address] PATHOLOGIST DISABILITIES CAREGIVER JONO MÉNDEZ M.D. Performed By: #### A 1C WTH eA, LIPID, [id number], CBC, CMP, TSH3 wRFLX #### [address] Basophils/100 WBC (Bld) 0.3 % Normal . [facility] Comment on above: Order Comment: MC MYERS Performed By: #### A 1C WTH eA, LIPID, [id number], CBC, CMP, TSH3 wRFLX #### [address] Eosinophils (Bld) [#/Vol] 0.0 10*3/uL Normal 0.0-0.45 [facility] Comment on above: Order Comment: MC MYERS Performed By: #### A 1C WTH eA, LIPID, [id number], CBC, CMP, TSH3 wRFLX #### [address] Eosinophils/100 WBC (Bld) 0.1 % Normal . [facility] Comment on above: Order Comment: MC MYERS Performed By: #### A 1C WTH eA, LIPID, [id number], CBC, CMP, TSH3 wRFLX #### [address] Erythrocyte distribution width (RBC) [Ratio] 13.9 % Normal 11.9-15.3 [facility] Comment on above: Order Comment: MC MYERS Performed By: #### A 1C WTH eA, LIPID, [id number], CBC, CMP, TSH3 wRFLX #### [address] Hematocrit (Bld) [Volume fraction] 38.7 % Normal 34.0-46.4 [facility] Comment on above: Order Comment: MC MYERS Performed By: #### A 1C WTH eA, LIPID, [id number], CBC, CMP, TSH3 wRFLX #### [address] Hemoglobin (Bld) [Mass/Vol] 12.9 g/dL Normal 11.8-15.4 [facility] Comment on above: Order Comment: MC MYERS Performed By: #### A 1C WTH eA, LIPID, [id number], CBC, CMP, TSH3 wRFLX #### [address] Lymphocytes (Bld) [#/Vol] 1.2 10*3/uL Normal 1.00-4.8 [facility] Comment on above: Order Comment: MC MYERS Performed By: #### A 1C WTH eA, LIPID, [id number], CBC, CMP, TSH3 wRFLX #### [address] Lymphocytes/100 WBC (Bld) 7.5 % Normal . [facility] Comment on above: Order Comment: MC MYERS Performed By: #### A 1C WTH eA, LIPID, [id number], CBC, CMP, TSH3 wRFLX #### [address] MCH (RBC) [Entitic mass] 28.9 pg Normal 24.7-34.3 [facility] Comment on above: Order Comment: MC MYERS Performed By: #### A 1C WTH eA, LIPID, [id number], CBC, CMP, TSH3 wRFLX #### [address] MCV (RBC) [Entitic vol] 86.7 fL Normal 80-100 [facility] Comment on above: Order Comment: MC MYERS Performed By: #### A 1C WTH eA, LIPID, [id number], CBC, CMP, TSH3 wRFLX #### [address] Mean Corpuscular HGB Conc 33.4 g/dL Normal 32.0-35.0 [facility] Comment on above: Order Comment: MC MYERS Performed By: #### A 1C WTH eA, LIPID, [id number], CBC, CMP, TSH3 wRFLX #### [facility] [address] Monocytes (Bld) [#/Vol] 0.8 10*3/uL Normal 0.0-0.8 [facility] Comment on above: Order Comment: MC MYERS Performed By: #### A 1C WTH eA, LIPID, [id number], CBC, CMP, TSH3 wRFLX #### [facility] [address] Monocytes/100 WBC (Bld) 5.0 % Normal . [facility] Comment on above: Order Comment: MC MYERS Performed By: #### A 1C WTH eA, LIPID, [id number], CBC, CMP, TSH3 wRFLX #### [address] Neutrophils (Bld) [#/Vol] 13.4 10*3/uL High 1.8-7.7 [facility] Comment on above: Order Comment: MC MYERS Performed By: #### A 1C WTH eA, LIPID, [id number], CBC, CMP, TSH3 wRFLX #### [address] Neutrophils/100 WBC (Bld) 87.1 % Normal . [facility] Comment on above: Order Comment: MC MYERS Performed By: #### A 1C WTH eA, LIPID, [id number], CBC, CMP, TSH3 wRFLX #### [facility] [address] [place] [address] NRBC% 0.0 /100{WBC} Normal 0-0.5 [facility] Comment on above: Order Comment: MC MYERS Performed By: #### A 1C WTH eA, LIPID, [id number], CBC, CMP, TSH3 wRFLX #### [address] Platelet mean volume (Bld) [Entitic vol] 8.0 fL Normal 6.3-10.7 [facility] Comment on above: Order Comment: MC MYERS Performed By: #### A 1C WTH eA, LIPID, [id number], CBC, CMP, TSH3 wRFLX #### [facility] [address] Platelets (Bld) [#/Vol] 214 10*3/uL Normal 150-450 [facility] Comment on above: Order Comment: MC MYERS Performed By: #### A 1C WT eA, LIPID, [id number], CBC, CMP, TSH3 wRFLX #### [facility] [address] RBC (Bld) [#/Vol] 4.46 10*6/uL Normal 3.60-5.00 [facility] Comment on above: Order Comment: [facility] MYERS Performed By: #### A 1C WT eA, LIPID, [id number], CBC, CMP, TSH3 wRFLX #### [address] WBC (Bld) [#/Vol] 15.4 10*3/uL High 3.8-11.6 [facility] Comment on above: Order Comment: MC MYERS Performed By: #### A 1C WT eA, LIPID, [id number], CBC, CMP, TSH3 wRFLX #### [place] [address] [place] Eosinophils Auto (Bld) [#/Vo l]Ordered By: Valdemar Martinez on 10-17-2022 Eosinophils (Bld) [#/Vol] 0.0 10*3/uL 0.0-0.45 [facility] Eosinophils/100 WBC Auto (Bl d)Ordered By: Valdemar Martinez on 10-17-2022 Eosinophils/100 WBC (Bld) 0.1 % . [facility] Erythrocyte distribution wid th Auto (RBC) [Ratio]Ordered By: Valdemar Martinez on 10-17-2022 Erythrocyte distribution width (RBC) [Ratio] 13.9 % 11.9-15.3 [facility] Hematocrit Auto (Bld) [Volum e fraction]Ordered By: Valdemar Martinez on 10-17-2022 Hematocrit (Bld) [Volume fraction] 38.7 % 34.0-46.4 [facility] Hemoglobin [Mass/volume] in BloodOrdered By: Valdemar Martinez on 10-17-2022 Hemoglobin (Bld) [Mass/Vol] 12.9 g/dL 11.8-15.4 [facility] Leukocytes [#/volume] correc joe for nucleated erythrocytes in Blood by Automated counOrdered By: Valdemar Martinez on 10-17-2022 WBC corrected for nucl RBC Auto (Bld) [#/Vol] 15.4 10*3/uL 3.8-11.6 [facility] Lymphocytes Auto (Bld) [#/Vo l]Ordered By: Valdemar Martinez on 10-17-2022 Lymphocytes (Bld) [#/Vol] 1.2 10*3/uL 1.00-4.8 [facility] Lymphocytes/100 WBC Auto (Bl d)Ordered By: Valdemar Martinez on 10-17-2022 Lymphocytes/100 WBC (Bld) 7.5 % . [facility] MCH Auto (RBC) [Entitic mass ]Ordered By: Valdemar Martinez on 10-17-2022 MCH (RBC) [Entitic mass] 28.9 pg 24.7-34.3 [facility] MCHC Auto (RBC) [Mass/Vol]Or dered By: Valdemar Martinez on 10-17-2022 MCHC (RBC) [Mass/Vol] 33.4 g/dL 32.0-35.0 [facility] MCV Auto (RBC) [Entitic vol] Ordered By: Valdemar Martinez on 10-17-2022 MCV (RBC) [Entitic vol] 86.7 fL 80-100 [facility] Monocytes Auto (Bld) [#/Vol] Ordered By: Valdemar Martinez on 10-17-2022 Monocytes (Bld) [#/Vol] 0.8 10*3/uL 0.0-0.8 [facility] Monocytes/100 WBC Auto (Bld) Ordered By: Valdemar Martinez on 10-17-2022 Monocytes/100 WBC (Bld) 5.0 % . [facility] Neutrophils Auto (Bld) [#/Vo l]Ordered By: Valdemar Martinez on 10-17-2022 Neutrophils (Bld) [#/Vol] 13.4 10*3/uL 1.8-7.7 [facility] Neutrophils/100 WBC Auto (Bl d)Ordered By: Valdemar Martinez on 10-17-2022 Neutrophils/100 WBC (Bld) 87.1 % . [facility] Nucleated erythrocytes [Pres ence] in Blood by Automated countOrdered By: Valdemar Martinez on 10-17-2022 Nucleated RBC Auto Ql (Bld) 0.0 /100{WBC} 0-0.5 [facility] Platelet mean volume Auto (B ld) [Entitic vol]Ordered By: Valdemar Martinez on 10-17-2022 Platelet mean volume (Bld) [Entitic vol] 8.0 fL 6.3-10.7 [facility] Platelets Auto (Bld) [#/Vol] Ordered By: Valdemar Martinez on 10-17-2022 Platelets (Bld) [#/Vol] 214 10*3/uL 150-450 [facility] RBC Auto (Bld) [#/Vol]Ordere d By: Valdemar Martinez on 10-17-2022 RBC (Bld) [#/Vol] 4.46 10*6/uL 3.60-5.00 [facility] RPR w/rfx to Quant TP [place]son 10-17-2022 RPR, Rfx Quant RPR Non-Reactive Normal Non Reactive [facility] Comment on above: Result Comment: Perf ormed at: CB - [facility] [address] [id number] Real Estate Leasing Agent: Hawk Prather PhD, Phone: [phone] PERFORMED BY: [place] [address] PATHOLOGIST DISABILITIES CAREGIVER JONO MÉNDEZ M.D. Performed By: #### S CAN CBC #### [address] #### RPR W RFX #### [facility] , Scan and CBCon 10-17-2022 Basophils (Bld) [#/Vol] 0.1 10*3/uL Normal 0.0-0.2 [facility] Comment on above: Performed By: #### S CAN CBC #### [facility] [address] [place] [address] #### RPR W RFX #### [facility] , Basophils/100 WBC (Bld) 0.5 % Normal . [facility] Comment on above: Performed By: #### S CAN CBC #### [facility] [address] [place] [address] #### RPR W RFX #### [facility] , Eosinophils (Bld) [#/Vol] 0.2 10*3/uL Normal 0.0-0.45 [facility] Comment on above: Performed By: #### S CAN CBC #### [facility] [address] [place] [address] #### RPR W RFX #### [facility] , Eosinophils/100 WBC (Bld) 0.9 % Normal . [facility] Comment on above: Performed By: #### S CAN CBC #### [facility] [address] [place] [address] #### RPR W RFX #### [facility] , Erythrocyte distribution width (RBC) [Ratio] 14.0 % Normal 11.9-15.3 [facility] Comment on above: Performed By: #### S CAN CBC #### [facility] [address] [place] [address] [place] #### RPR W RFX #### [facility] , Hematocrit (Bld) [Volume fraction] 38.7 % Normal 34.0-46.4 [facility] Comment on above: Performed By: #### S CAN CBC #### [facility] [address] [place] [address] [place] #### RPR W RFX #### [facility] , Hemoglobin (Bld) [Mass/Vol] 12.9 g/dL Normal 11.8-15.4 [facility] Comment on above: Performed By: #### S CAN CBC #### [address] #### RPR W RFX #### [facility] , Lymphocytes (Bld) [#/Vol] 2.3 10*3/uL Normal 1.00-4.8 [facility] Comment on above: Performed By: #### S CAN CBC #### [address] #### RPR W RFX #### [facility] , Lymphocytes/100 WBC (Bld) 12.6 % Normal . [facility] Comment on above: Performed By: #### S CAN CBC #### [address] #### RPR W RFX #### [facility] , MCH (RBC) [Entitic mass] 29.3 pg Normal 24.7-34.3 [facility] Comment on above: Performed By: #### S CAN CBC #### [address] #### RPR W RFX #### [facility] , MCV (RBC) [Entitic vol] 87.9 fL Normal 80-100 [facility] Inc Comment on above: Performed By: #### S CAN CBC #### [facility] [address] [place] [address] [place] #### RPR W RFX #### [facility] , Mean Corpuscular HGB Conc 33.4 g/dL Normal 32.0-35.0 [facility] Comment on above: Performed By: #### S CAN CBC #### [facility] [address] [place] [address] [place] #### RPR W RFX #### [facility] , Monocytes (Bld) [#/Vol] 0.9 10*3/uL High 0.0-0.8 [facility] Comment on above: Performed By: #### S CAN CBC #### [facility] [address] [place] [address] #### RPR W RFX #### [facility] , Monocytes/100 WBC (Bld) 5.0 % Normal . [facility] Comment on above: Performed By: #### S CAN CBC #### [facility] [address] [place] [address] #### RPR W RFX #### [facility] , Neutrophils (Bld) [#/Vol] 14.9 10*3/uL High 1.8-7.7 [facility] Comment on above: Performed By: #### S CAN CBC #### [facility] [address] [place] [address] #### RPR W RFX #### [facility] , Neutrophils/100 WBC (Bld) 81.0 % Normal . [facility] Comment on above: Performed By: #### S CAN CBC #### [facility] [address] [place] [address] #### RPR W RFX #### [facility] , NRBC% 0.3 /100{WBC} Normal 0-0.5 [facility] Comment on above: Performed By: #### S CAN CBC #### [facility] [address] [place] [address] [place] #### RPR W RFX #### [facility] , Platelet Estimate Normal Normal Normal [facility] Comment on above: Performed By: #### S CAN CBC #### [facility] [address] [place] [address] [place] #### RPR W RFX #### [facility] , Platelet mean volume (Bld) [Entitic vol] 9.1 fL Normal 6.3-10.7 [facility] Comment on above: Performed By: #### S CAN CBC #### [facility] [address] [place] [address] #### RPR W RFX #### [facility] , Platelet Morphology Normal Normal Normal [facility] Comment on above: Result Comment: PERF ORMED BY: [place] [address] PATHOLOGIST DISABILITIES CAREGIVER JONO MÉNDEZ M.D. Performed By: #### S CAN CBC #### [facility] [address] [place] [address] #### RPR W RFX #### [facility] , Platelets (Bld) [#/Vol] 241 10*3/uL Normal 150-450 [facility] Comment on above: Performed By: #### S CAN CBC #### [facility] [address] [place] [address] #### RPR W RFX #### [facility] , RBC (Bld) [#/Vol] 4.40 10*6/uL Normal 3.60-5.00 [facility] Comment on above: Performed By: #### S CAN CBC #### [facility] [address] [place] [address] [place] #### RPR W RFX #### [facility] , RBC morphology finding Nom (Bld) Normal Normal Normal [facility] Comment on above: Performed By: #### S CAN CBC #### [facility] [address] [place] [address] [place] #### RPR W RFX #### [facility] , WBC (Bld) [#/Vol] 18.4 10*3/uL High 3.8-11.6 [facility] Comment on above: Performed By: #### S CAN CBC #### [facility] [address] [place] [address] [place] #### RPR W RFX #### [facility] , WBC Auto (Bld) [#/Vol]Ordere d By: Valdemar Martinez on 10-17-2022 WBC (Bld) [#/Vol] 15.4 10*3/uL 3.8-11.6 [facility] Amphetamine Screen Ql (U)Ord ered By: Valdemar Martinez on 10-16-2022 Amphetamines Ql (U) Negative Negative [facility] Automated erythrocytes count in urine sediment (number/area)Ordered By: Valdemar Martinez on 10-16-2022 RBC Auto (Urine sed) [#/Area] 3-4 [HPF] 0-4 [facility] Automated leukocytes count i n urine sediment (number/area)Ordered By: Valdemar Martinez on 10-16-2022 WBC Auto (Urine sed) [#/Area] 3-4 [HPF] 0-4 [facility] Barbiturates [Presence] in U rine by Screen methodOrdered By: Valdemar Martinez on 10-16-2022 Barbiturates Screen Ql (U) Negative Negative [facility] Benzodiazepines Screen Ql (U )Ordered By: Valdemar Martinez on 10-16-2022 Benzodiazepines Ql (U) Negative Negative [facility] Benzoylecgonine [Presence] i n Urine by Screen methodOrdered By: Valdemar Martinez on 10-16-2022 Benzoylecgonine Screen Ql (U) Negative Negative [facility] Bilirubin Test strip Ql (U)O rdered By: Valdemar Martinez on 10-16-2022 Bilirubin Ql (U) Negative Negative [facility] Color Auto (U)Ordered By: Lauren Martinez on 10-16-2022 Color (U) Yellow Yellow [facility] Dipstick and Microscopicon 0 10-16-2022 Appearance (U) Clear Normal Clear [facility] Comment on above: Order Comment: Name Collection Type:: Voided Performed By: #### A DDONUAPLUS, OBUDS #### [facility] [address] [place] [address] Bacteria,Urine None Seen Normal None Seen [facility] Comment on above: Order Comment: Name Collection Type:: Voided Performed By: #### A DDONUALYLE OBUDS #### [place] [address] [place] Bilirubin,Urine Negative Normal Negative [facility] Comment on above: Order Comment: Name Collection Type:: Voided Performed By: #### A DDONUAPLUS OBUDS #### [address] Color (U) Yellow Normal Yellow [facility] Comment on above: Order Comment: Name Collection Type:: Voided Performed By: #### A DDONUAPLUS OBUDS #### [address] Glucose Ql (U) Normal Normal Normal [facility] Comment on above: Order Comment: Name Collection Type:: Voided Performed By: #### A DDONUAPLUS OBUDS #### [place] [address] [place] Hyaline Casts,Urine 0-8 Normal 0-8 [facility] Comment on above: Order Comment: Name Collection Type:: Voided Result Comment: PERF ORMED BY: [place] [address] PATHOLOGIST DISABILITIES CAREGIVER JONO MÉNDEZ M.D. Performed By: #### A DDONUALYLE OBUDS #### [place] [address] [place] Ketones Ql (U) Negative Normal Negative [facility] Comment on above: Order Comment: Name Collection Type:: Voided Performed By: #### A DDONUAPLUS OBUDS #### [facility] [address] [place] [address] [place] Leukocyte esterase Test strip Ql (U) 1+ High Negative [facility] Comment on above: Order Comment: Name Collection Type:: Voided Performed By: #### A DDONUAPLUS OBUDS #### [place] [address] [place] Nitrite,Urine Negative Normal Negative [facility] Comment on above: Order Comment: Name Collection Type:: Voided Performed By: #### A DDONKIM OBUDS #### [address] Occult Blood,Urine 2+ High Negative [facility] Comment on above: Order Comment: Name Collection Type:: Voided Result Comment: PERF ORMED BY: [place] [address] PATHOLOGIST DISABILITIES CAREGIVER JONO MÉNDEZ M.D. Performed By: #### A DDNASIR OBUDS #### [address] pH (U) 7.0 [pH] Normal 5.0-9.0 [facility] Comment on above: Order Comment: Name Collection Type:: Voided Performed By: #### A DDONKIM OBUDS #### [address] Protein,Urine Negative Normal Negative [facility] Comment on above: Order Comment: Name Collection Type:: Voided Performed By: #### A DDNASIR OBUDS #### [address] RBC,Urine 3-4 Normal 0-4 [facility] Comment on above: Order Comment: Name Collection Type:: Voided Performed By: #### A DDONUALYLE OBUDS #### [address] Specificy Recluse,Urine 1.007 Normal 1.001-1.030 [facility] Comment on above: Order Comment: Name Collection Type:: Voided Performed By: #### A DDONUAPLUS OBUDS #### [address] Squamous Epithelial Cell,Urine 3-4 High 0-2 [facility] Comment on above: Order Comment: Name Collection Type:: Voided Performed By: #### A DDONUAPLUS OBUDS #### [address] [place] [address] [place] Urobilinogen,Urine Normal Normal Normal [facility] Comment on above: Order Comment: Name Collection Type:: Voided Performed By: #### A DDGENOVEVAUALYLE, OBUDS #### [facility] [address] WBC,Urine 3-4 Normal 0-4 [facility] Comment on above: Order Comment: Name Collection Type:: Voided Performed By: #### A DDONUAPLUS, OBUDS #### [facility] [address] Ketones Auto test strip (U) [Mass/Vol]Ordered By: Valdemar Martinez on 10-16-2022 Ketones (U) [Mass/Vol] Negative Negative [facility] - UrinalysisOrder ed By: Valdemar Martinez on 10-16-2022 Hyaline casts LM Ql (Urine sed) 0-8 [LPF] 0-8 [facility] Nitrite Test strip Ql (U)Ord ered By: Valdemar Martinez on 10-16-2022 Nitrite Ql (U) Negative Negative [facility] OB Urine Drug Screen (NO THC )on 10-16-2022 Amphetamine Screen,Urine Negative Normal Negative [facility] Comment on above: Performed By: #### A 1C WTH eA, LIPID, [id number], CBC, CMP, TSH3 wRFLX #### [facility] [address] Barbiturate Screen,Urine Negative Normal Negative [facility] Comment on above: Performed By: #### A 1C WTH eA, LIPID, [id number], CBC, CMP, TSH3 wRFLX #### [facility] [address] [place] [address] [place] Benzodiazepines Screen,Urine Negative Normal Negative [facility] Comment on above: Performed By: #### A 1C WTH eA, LIPID, [id number], CBC, CMP, TSH3 wRFLX #### [facility] [address] Cocaine Screen,Urine Negative Normal Negative [facility] Comment on above: Performed By: #### A 1C WTH eA, LIPID, [id number], CBC, CMP, TSH3 wRFLX #### [facility] [address] Opiate Screen,Urine Negative Normal Negative [facility] Comment on above: Performed By: #### A 1C WTH eA, LIPID, [id number], CBC, CMP, TSH3 wRFLX #### [facility] [address] Phencyclidine Screen, Urine Negative Normal Negative [facility] Comment on above: Result Comment: Thes e are unconfirmed results and should not be used for legal purposes. Drug Cut-Off Concentration: AMPH 1000 ng/mL HAI 200 ng/mL OCHOA 200 ng/mL COCM 300 ng/mL OP 300 ng/mL PCP 25 ng/mL PERFORMED BY: [place] [address] PATHOLOGIST DISABILITIES CAREGIVER JONO MÉNDEZ M.D. Performed By: #### A 1C WT eA, LIPID, [id number], CBC, CMP, TSH3 wRFLX #### [facility] [address] Opiates [Presence] in Urine by Screen methodOrdered By: Valdemar Martinez on 10-16-2022 Opiates Screen Ql (U) Negative Negative [facility] Phencyclidine Screen Ql (U)O rdered By: Valdemar Martinez on 10-16-2022 Phencyclidine Ql (U) Negative Negative [facility] Comment on above: These are unconfirme d results and should not be used for legal purposes. Drug Cut-Off Concentration: AMPH 1000 ng/mL HAI 200 ng/mL OCHOA 200 ng/mL COCM 300 ng/mL OP 300 ng/mL PCP 25 ng/mL Platelet adequacy [Presence] in Blood by Light microscopyOrdered By: Valdemar Martinez on 10-16-2022 Platelets LM Ql (Bld) Normal Normal [facility] Platelet morphology finding [Identifier] in BloodOrdered By: Valdemar Martinez on 10-16-2022 Platelet morphology finding Nom (Bld) Normal Normal [facility] Protein Auto test strip (U) [Mass/Vol]Ordered By: Valdemar Martinez on 10-16-2022 Protein (U) [Mass/Vol] Negative Negative [facility] RBC morphologyOrdered By: Lauren Martinez on 10-16-2022 RBC morphology finding Nom (Bld) Normal Normal [facility] Reagin Ab [Presence] in Seru m by RPROrdered By: Valdemar Martinez on 10-16-2022 Reagin Ab RPR Ql (S) Non-Reactive Non Reactive [facility] Comment on above: Performed at: [facility] [address] [id number] Director: Hawk Prather PhD, Phone: [phone] Specific gravity Auto test s trip (U) [Rel density]Ordered By: Valdemar Martinez on 10-16-2022 Specific gravity (U) [Rel density] 1.007 1.001-1.030 [facility] Squamous epithelial cells de tection in urine sediment by light microscopyOrdered By: Valdemar Martinez on 10-16-2022 Epithelial cells.squamous LM Ql (Urine sed) 3-4 [HPF] 0-2 [facility] Urine bacteria detection by automated methodOrdered By: Valdemar Martinez on 10-16-2022 Bacteria Auto Ql (U) None seen None Seen [facility] Urine clarity by refractomet ry automatedOrdered By: Valdemar Martinez on 10-16-2022 Clarity Refractometry automated (U) Clear Clear [facility] Urine glucose measurement by automated test strip (mass/volume)Ordered By: Valdemar Martinez on 10-16-2022 Glucose Auto test strip (U) [Mass/Vol] Normal mg/dL Normal [facility] Urine hemoglobin detection b y automated test stripOrdered By: Valdemar Martinez on 10-16-2022 Hemoglobin Auto test strip Ql (U) 2+ Negative [facility] Urine leukocyte esterase det ection by automated test stripOrdered By: Valdemar Martinez on 10-16-2022 Leukocyte esterase Auto test strip Ql (U) 1+ Negative [facility] Urobilinogen Auto test strip (U) [Mass/Vol]Ordered By: Valdemar Martinez on 10-16-2022 Urobilinogen (U) [Mass/Vol] Normal mg/dL Normal [facility] pH Auto test strip (U)Ordere d By: Valdemar Martinez on 10-16-2022 pH (U) 7.0 [pH] 5.0-9.0 [facility] Group B Streptococcus cultur eOrdered By: Mervat Vazquez on 09-16-2022 S. agalactiae Org specific cx Ql (Unsp spec) No Group B Beta Streptococcus Isolated 3 Days [facility] Strep B Cultureon 09-16-2022 Strep B Culture Reason for Exam 35 weeks gestation of ; screening for stre Vaginal/Rectal Reason for Exam: 35 weeks gestation of ; screening for stre : Vaginal/Rectal No Group B Beta Streptococcus Isolated 3 Days PERFORMED BY: [facility] [address] [place] [address] PATHOLOGIST DISABILITIES CAREGIVER JONO MÉNDEZ M.D. Normal [facility] Comment on above: Performed By: #### C USTB #### [facility] [address] GTT 3 HR PREGon 07-30-2022 Glucose [Mass/Vol] 88 mg/dL Normal 74-106 [facility] Comment on above: Performed By: #### G TT3P #### [facility] [address] [place] [address] Dr. Tad Bhatti Glucose [Mass/Vol] 147 mg/dL Normal [facility] Comment on above: Performed By: #### G TT3P #### [facility] [address] [address] [address] Tad Bhatti Glucose [Mass/Vol] 127 mg/dL Normal [facility] Comment on above: Performed By: #### G TT3P #### [facility] [address] [address] [address] Tad Bhatti Glucose [Mass/Vol] 82 mg/dL Normal [facility] Comment on above: Performed By: #### G TT3P #### [facility] [address] [address] [address] Tad Bhatti Quick Fluon 09-19-2021 FLUAV Ab CF (S) [Titer] Negative N [id number] Other FLUBV Ab CF (S) [Titer] Negative N orth [facility] Other Allergy/Immunology Office/Cl inic Noteon 07-05-2019 Allergy/Immunology Office/Clinic Note Chief Complaint AR and AIT History of Present Illness Shalonda is a 28 year old female that presents in office due to 5 month follow up for allergic rhinitis and AIT. Shalonda states she is not taking Azelastine nasal spray or Pataday eye drops, but has continued the Singulair daily before bed. Shalonda is doing well and denies any runny nose, itchy eyes, or congestion since last visit. She feels like the Singulair and along with the allergy shots have improved her symptoms. She does sometimes have postnasal drip in the morning which lasts for about half a day and the results on its own. She denies any side effects from medication. Shalonda is tolerating her allergy shots and is not on her monthly maintenance yet. Shalonda is receiving her allergy shots at her PCP office, but did complain of a small reaction at last injection. Shalonda complained five minutes after receiving her last allergy shot she became very hot, and realized her blood pressure increased she was having flushing and her heart rate increased. She felt like her eyes also got red at that time. Shalonda denies taking anything for these symptoms, but did say she waited in office for an hour and a half until her symptoms subsided. hSalonda does take Claritin the night before injections as well as the morning of. She received up to 0.4 mL dose of the red 1-1 vial. She had tolerated the 0.3 mL dose a month prior. She denies having any itching, dizziness, shortness of breath, wheezing, cough, increased drainage with the flushing. She notes that she doesn't typically a flushing other times. 02/08/2019 1. Allergic conjunctivitis of both eyes While controlled continue to use Pataday eyedrops as needed. 2. Cough She continues to have cough due to postnasal drip and? Reflux. She did not have any obstruction on her lung function testing with last evaluation and this is less likely to be related to any obstructive lung disease. She may have some vocal cord dysfunction which is triggered by the postnasal drip. At this time I would recommend more aggressive treatment for her postnasal drip with adding azelastine 2 sprays in each nostril once daily along with continuing her Singulair once daily and Claritin. My hope is that with more aggressive treatment of her rhinitis symptoms her cough will resolve. Allergic rhinitis Her rhinitis symptoms are currently not well controlled on medication management with Singulair once daily and Claritin. She did not tolerate the steroidis caused nosebleeds. We will have her add azelastine to her current regimen and continue to build up on allergen immunotherapy once weekly. Orders: azelastine nasal, 2 sprays, Nasal, HS (at bedtime), # 1 EA, 5 Refill(s), Pharmacy: [facility]/pharmacy #[id number] Follow-up in 4 months [1] Review of Systems General Symptoms Appetite change: No? Fatigue:No? Weakness:No? Any frequent/recurrent infections:No? Respiratory Symptons Cough: No? Shortness of breath: No? Sputum production: No? Wheezing: No? EEMT Symptoms Nasal discharge: No? Nasal congestion: No? Postnasal drainage: No? Sore throat: No? Any itching/watering/redn ess to eyes: No? Cardiovascular Symptoms Chest pain pressure:No? Gastrointestinal Symptoms Abdominal pain: No? Constipation: No? Diarrhea:No? Nausea:No? Vomiting: No? Genitourinary Symptoms Decreased urine output: No? Skin Symptoms Itching: No? Rash: No? Musculoskeletal Back pain: No? Joint pain: No? Joint stiffness: No? Joint swelling: No? Neurological Symptoms Headache: No? Numbness: No? Tremor: No? Psychiatric Symptoms Anxiety: No? Depression:No? Hematologic/Lymphatic Symptoms Bruising: No? Bleeding tendencies: No? Physical Exam Vitals & Measurements BP: 138/84 HT: 165 cm WT: 86.7 kg DOSE WT: 86.7 kg BMI: 31.85 Constitutional: The patient is oriented to person, place, and time and well-developed, well-nourished, and in no distress. HENT: Head: Normocephalic and atraumatic. Right Ear: Tympanic membrane, external ear and ear canal normal. No drainage or tenderness. Tympanic membrane is not injected, not scarred, not perforated, not erythematous and not retracted. Left Ear: Tympanic membrane, external ear and ear canal normal. No drainage or tenderness. Tympanic membrane is not injected, not scarred, not perforated, not erythematous and not retracted. Nose: Mucosal edema mild (pale boggy nasal mucosa without obstruction or nasal polyps) and rhinorrhea (clear) is not present. Mouth/Throat: Uvula is midline, oropharynx is clear and mucous membranes are moist. Eyes: Conjunctivae and EOM are normal. Pupils are equal, round, and reactive to light. Neck: Normal range of motion. Neck supple. Cardiovascular: Normal rate and regular rhythm. No murmur heard. Pulmonary/Chest: Effort normal and breath sounds normal. No wheezes. No rales. Abdominal: Soft. Bowel sounds are normal. No masses. Musculoskeletal: Normal range of motion. No visible edema. Neurological: Alert and oriented to person, place, and time. Skin: Skin is warm and dry. No rash noted. Not diaphoretic. No erythema. Psychiatric: Affect normal. Vitals Reviewed. Additional Vitals No qualifying data available. Assessment/Plan 1. Allergic rhinitis due to pollen Her allergic rhinitis symptoms are currently well controlled on the Singulair once daily along with allergen immunotherapy. She was unable to tolerate the 0.4 mL dose and I would make recommendations outlined below for a slight reduction in her dose and re-escalation from there. She needs a refill on her Singulair and we will provide that today. She can continue to have these lasting on hand as needed. I would recommend that she switch from Claritin to size all on the night before and morning of her allergy shots. 2. Allergic rhinitis due to dust mite As above 3. Flushing This likely represents a reaction to her allergen immunotherapy and I would recommend that she scaled back to the 0.3 mL dose at her next injection visit and then increase by 0.05 mL's monthly until she reaches full dose maintenance. (0.3 mL of the red 1-1 vial this month, then if tolerated in 4 weeks 0.35 mL of the red 1-1 vial, then if tolerated in 4 weeks 0.4 mL of the red 1-1 vial, then if tolerated in 4 weeks 0.45 mL of the red 1-1 vial, then if tolerated in 4 weeks 0.5 mL of the red 1-1 vial monthly until the vial is near empty and that she call for refill). She will continue 0.5 mL of the red vial from then on monthlyUntil she is completed 3-5 years of maintenance. 4. High blood pressure I discussed with Shalonda that her elevation in her blood pressure is unlikely be related to a reaction to her injection (one would expect a drop in blood pressure for reaction) but may possibly be related to anxiety versus underlying hypertension. She will continue to monitor blood pressure at home and follow up with her primary care doctor for this issue going forward. Orders: montelukast, 1 tabs, Oral, qPM, # 30 tabs, 11 Refill(s), Pharmacy: [facility]/pharmacy #[id number] Follow-up in 9-12 months Problem List/Past Medical History Ongoing ADHD - Attention deficit disorder with hyperactivity Allergic rhinitis Anxiety Historical No qualifying data Procedure/Surgical History wisdom teeth extraction (2008) DIAGNOSTIC COLONOSCOPY (2016) DIAGNOSTIC COLONOSCOPY (2019) Medications Adderall 15 mg oral tablet, 15 mg, 1 tabs, Oral, BID Alyacen 35, 1 tabs, Oral, Daily, Not taking azelastine 137 mcg/inh (0.1%) nasal spray, 2 sprays, Nasal, HS (at bedtime), 5 refills, Not taking Claritin 10 mg oral tablet, 10 mg, 1 tabs, Oral, Daily Effexor XR 75 mg oral capsule, extended release, 75 mg, 1 caps, Oral, Daily Pataday 0.2% ophthalmic solution, 1 drops, Eye-Both, Daily, PRN, 5 refills, Not taking Rhinocort Aqua 32 mcg/inh nasal spray, 2 sprays, Nasal, Daily, 11 refills, Not taking Singulair 10 mg oral tablet, 10 mg, 1 tabs, Oral, qPM, 11 refills Sudafed, Oral, q6hr, Not taking traZODone 50 mg oral tablet, 50 mg, 1 tabs, Oral, HS (at bedtime) Allergies No Known Medication Allergies Social History Alcohol Never Tobacco Never (less than 100 in lifetime) Use:. Family History Prostate cancer: Grandfather (M). [1] Office Visit Note; Verito Moe MD 02/08/2019 12:28 EDT Electronically signed by Abhi WEBERVerito 07/05/19 15:29 EST Electronically signed by Martha Ledezma 07/04/2019 11:10 EST Electronically signed by Maddison Lee 07/05/2019 13:16 EST Normal [facility] Provider Letteron 07-05-2019 Provider Letter Michael Hutchinson, RECREATION THERAPIST [address] [place] [id number] Re: Shalonda Santiago 1990 Date of Visit: 07/05/2019 Dear Michael Hutchinson, I had the pleasure of evaluating your patient, Shalonda Santiago, in the [facility] clinic on 07/05/2019. Attached you will find my office visit note with detailed assessment and recommendations. Thank you for allowing me to participate in the care of your kind patient. The patient was provided with discharge instructions, both written and verbal, and follow up has been arranged as stated in the attached note. Please do not hesitate to contact our office with any questions. Sincerely, Verito Moe MD MS Allergy and Immunology [facility] [address] [place] [address] C C Providers: The following document(s) were included in the letter: July 05, 2019 11:06:00 EST - (07/05/2019) Office Visit Note Normal [facility] Vital Signs Date Time Vital Sign Value Performing Clinician Facility 05-30-2024 15:30-0500 Body mass index (BMI) [Ratio] 32.61 kg/m2 Mervat Vazquez DO Work Phone: [facility] 05-30-2024 15:30-0500 Body weight 86.18 kg Mervat Vazquez DO Work Phone: [facility] 05-30-2024 15:30-0500 Diastolic blood pressure 84 mm[Hg] Mervat Rinkes DO Work Phone: [facility] 05-30-2024 15:30-0500 Systolic blood pressure 120 mm[Hg] Mervat Beckerkes DO Work Phone: [facility] 03-21-2024 10:35-0500 Body height 162.6 cm Justo Myers RESEARCH LIBRARIAN Work Phone: [facility] 03-21-2024 10:35-0500 Body mass index (BMI) [Ratio] 31.93 kg/m2 Justo Myres RESEARCH LIBRARIAN Work Phone: [facility] 03-21-2024 10:35-0500 Body weight 84.37 kg Justo Myers RESEARCH LIBRARIAN Work Phone: [facility] 03-21-2024 10:35-0500 Diastolic blood pressure 80 mm[Hg] Justo Myers RESEARCH LIBRARIAN Work Phone: [facility] 03-21-2024 10:35-0500 Heart rate 92 /min Justo Myers RESEARCH LIBRARIAN Work Phone: [facility] 03-21-2024 10:35-0500 SaO2% (BldA) [Mass fraction] 97 % Justo Myers RESEARCH LIBRARIAN Work Phone: [facility] 03-21-2024 10:35-0500 Systolic blood pressure 130 mm[Hg] Justo Myers RESEARCH LIBRARIAN Work Phone: [facility] 02-15-2024 09:04-0400 Body height 162.6 cm Justo Myers RESEARCH LIBRARIAN Work Phone: [facility] 02-15-2024 09:04-0400 Body mass index (BMI) [Ratio] 31.76 kg/m2 Justo Myers RESEARCH LIBRARIAN Work Phone: [facility] 02-15-2024 09:04-0400 Body weight 83.92 kg Justo Myers RESEARCH LIBRARIAN Work Phone: [facility] 02-15-2024 09:04-0400 Diastolic blood pressure 84 mm[Hg] Justo Myers RESEARCH LIBRARIAN Work Phone: [facility] 02-15-2024 09:04-0400 Heart rate 62 /min Justo Myers RESEARCH LIBRARIAN Work Phone: [facility] 02-15-2024 09:04-0400 SaO2% (BldA) [Mass fraction] 98 % Justo Myers RESEARCH LIBRARIAN Work Phone: [facility] 02-15-2024 09:04-0400 Systolic blood pressure 112 mm[Hg] Justo Myers RESEARCH LIBRARIAN Work Phone: [facility] 01-02-2024 14:58-0400 Body height 162.6 cm Michael Rine RESEARCH LIBRARIAN Work Phone: [facility] 01-02-2024 14:58-0400 Body mass index (BMI) [Ratio] 31.38 kg/m2 Michael Rine RESEARCH LIBRARIAN Work Phone: [facility] 01-02-2024 14:58-0400 Body temperature 99.1 [degF] Michael Rine RESEARCH LIBRARIAN Work Phone: [facility] 01-02-2024 14:58-0400 Body weight 82.92 kg Michael Rine RESEARCH LIBRARIAN Work Phone: [facility] 01-02-2024 14:58-0400 Diastolic blood pressure 68 mm[Hg] Michael Rine RESEARCH LIBRARIAN Work Phone: [facility] 01-02-2024 14:58-0400 Heart rate 99 /min Michael Rine RESEARCH LIBRARIAN Work Phone: [facility] 01-02-2024 14:58-0400 Respiratory rate 18 /min Michael Rine RESEARCH LIBRARIAN Work Phone: [facility] 01-02-2024 14:58-0400 SaO2% (BldA) [Mass fraction] 99 % Michael Rine RESEARCH LIBRARIAN Work Phone: [facility] 01-02-2024 14:58-0400 Systolic blood pressure 112 mm[Hg] Michael Rine RESEARCH LIBRARIAN Work Phone: [facility] 10-18-2022 08:16-0400 Body temperature 98 [degF] CFNP Michael Rine Work Phone: [facility] 10-18-2022 08:16-0400 Diastolic blood pressure 84 mm[Hg] CFNP Michael Rine Work Phone: [facility] 10-18-2022 08:16-0400 Heart rate 72 /min CFNP Michael Rine Work Phone: [facility] 10-18-2022 08:16-0400 Respiratory rate 18 /min CFNP Michael Rine Work Phone: [facility] 10-18-2022 08:16-0400 SaO2% (BldA) [Mass fraction] 96 % CFNP Michael Rine Work Phone: [facility] 10-18-2022 08:16-0400 Systolic blood pressure 137 mm[Hg] CFNP Michael Rine Work Phone: [facility] 10-16-2022 20:25-0400 Body height 162.56 cm CFNP Michael Rine Work Phone: [facility] 10-16-2022 20:25-0400 Body weight 94.34 kg CFNP Michael Rine Work Phone: [facility] 09-19-2021 10:30-0400 Body height 162.56 cm Arin Toure Other [facility] [facility] [employer] Other 09-19-2021 10:30-0400 Body mass index (BMI) [Ratio] 32.61 kg/m2 Arin Toure Other [facility] Other 09-19-2021 10:30-0400 Body weight 86.18 kg Arin Toure Other [facility] Other Encounters Encounter Date Encounter Type Care Provider Facility Start: 06-20-2024 End: 06-20-2024 Bamboo flowsheet Justo Myers RESEARCH LIBRARIAN Work Phone: [facility] Start: 06-20-2024 End: 06-20-2024 Bamboo flowsheet Justo Myers RESEARCH LIBRARIAN Work Phone: [facility] Start: 06-20-2024 End: 06-20-2024 Office outpatient visit 15 minutes Justo Myers RESEARCH LIBRARIAN Work Phone: [facility] Comment on above: Attention deficit hy peractivity disorder (ADHD), predominantly inattentive type (CMS/HCC) (Primary Dx) Start: 06-20-2024 End: 06-20-2024 ambulatory JUSTO MYERS Not Available Start: 06-17-2024 End: 06-17-2024 Telephone encounter Michael Hutchinson RESEARCH LIBRARIAN Work Phone: [facility] Start: 06-05-2024 End: 06-05-2024 ambulatory [facility] Start: 06-05-2024 End: 06-05-2024 Online digital e/m svc est pt <7 d 5-10 minutes [facility] SPANISH LITERATURE PROFESSOR-RECREATION THERAPIST Work Phone: [facility] Comment on above: E-Visit for Sinus Pa in Start: 05-30-2024 End: 05-30-2024 Patient encounter status Mervat Vazquez DO Work Phone: [facility] Start: 05-30-2024 End: 05-30-2024 Periodic preventive med est patient 18-39 yrs Mervat Vazquez DO Work Phone: [facility] Comment on above: Encounter for gyneco logical examination without abnormal finding; Screening for malignant neoplasm of cervix; Surveillance of contraceptive pill Start: 05-30-2024 End: 05-30-2024 ambulatory MERVAT VAZQUEZ Not Available Start: 05-30-2024 End: 05-30-2024 Bamboo flowsheet Mervat Vazquez DO Work Phone: [facility] Start: 05-30-2024 End: 05-30-2024 Bamboo flowsheet Mervat Vazquez DO Work Phone: [facility] Start: 04-30-2024 End: 04-30-2024 Refill Deepthi Feucht MA [facility] Comment on above: Attention deficit hy peractivity disorder (ADHD), predominantly inattentive type (CMS/HCC) Start: 04-01-2024 End: 04-01-2024 Telephone encounter Michael Hutchinson RESEARCH LIBRARIAN Work Phone: [facility] Comment on above: refill Adderall Start: 03-21-2024 End: 03-21-2024 Bamboo flowsheet Justo Myers RESEARCH LIBRARIAN Work Phone: [facility] Start: 03-21-2024 End: 03-21-2024 Bamboo flowsheet Justo Myers RESEARCH LIBRARIAN Work Phone: [facility] Start: 03-21-2024 End: 03-21-2024 Office outpatient visit 15 minutes Justo Myers RESEARCH LIBRARIAN Work Phone: [facility] Comment on above: Chronic nonintractab le headache, unspecified headache type (Primary Dx); Attention deficit hyperactivity disorder (ADHD), unspecified ADHD type (CMS/HCC) Start: 03-21-2024 End: 03-21-2024 ambulatory JUSTO MYERS Not Available Start: 03-01-2024 End: 03-01-2024 Telephone encounter Evelyn Herrera RN [facility] Start: 02-15-2024 End: 02-15-2024 Bamboo flowsheet Justo Myers RESEARCH LIBRARIAN Work Phone: [facility] Start: 02-15-2024 End: 02-15-2024 Bamboo flowsheet Justo Myers RESEARCH LIBRARIAN Work Phone: [facility] Start: 02-15-2024 End: 02-15-2024 Patient encounter status Justo Myers RESEARCH LIBRARIAN Work Phone: [facility] Work Phone: Start: 02-15-2024 End: 02-15-2024 Periodic preventive med est patient 18-39 yrs Justo Myers RESEARCH LIBRARIAN Work Phone: [facility] Comment on above: Wellness examination (Primary Dx); Flu vaccine need; Need for influenza vaccination; Internal hemorrhoids; Anxiety; Attention deficit hyperactivity disorder (ADHD), unspecified ADHD type (CMS/HCC) Start: 02-15-2024 End: 02-15-2024 ambulatory JUSTO MYERS Not Available Start: 01-30-2024 End: 01-30-2024 Telephone encounter Michael Hutchinson RESEARCH LIBRARIAN Work Phone: [facility] Comment on above: Med Refill Start: 01-02-2024 End: 01-02-2024 Office outpatient visit 15 minutes Michael L Rositae RESEARCH LIBRARIAN Work Phone: [facility] Comment on above: Vitamin D deficiency (Primary Dx); Anxiety; Attention deficit hyperactivity disorder (ADHD), predominantly inattentive type (CMS/HCC) Start: 01-02-2024 End: 01-02-2024 ambulatory MICHAEL L RINE Not Available Start: 01-02-2024 End: 01-02-2024 Bamboo flowsheet Michael L Rine RESEARCH LIBRARIAN Work Phone: [facility] Start: 01-02-2024 End: 01-02-2024 Bamboo flowsheet Michael L Rine RESEARCH LIBRARIAN Work Phone: [facility] Start: 01-02-2024 End: 01-02-2024 Telephone encounter Michael L Rositae RESEARCH LIBRARIAN Work Phone: [facility] Start: 11-10-2023 End: 11-10-2023 ambulatory KEELY HAN Not Available Start: 10-02-2023 End: 10-02-2023 ambulatory JUSTO MYERS Not Available Start: 08-15-2023 End: 08-15-2023 ambulatory STORMY MOY Not Available Start: 07-27-2023 End: 07-27-2023 ambulatory JUSTO MYERS Not Available Start: 06-28-2023 Telephone encounter Justo dahl RESEARCH LIBRARIAN Work Phone: [facility] Start: 06-27-2023 Refill Michael L Rine N P Work Phone: [facility] Comment on above: Anxiety Start: 06-16-2023 End: 06-16-2023 ambulatory Michael L Rine Facility:[facility] Start: 06-16-2023 End: 06-16-2023 ambulatory CFNP Michael L Rine Work Phone: [facility] Work Phone: Start: 06-16-2023 End: 06-16-2023 Patient encounter procedure CFNP Michael Rine Work Phone: [facility] Start: 10-16-2022 End: 10-18-2022 Evaluation and management of inpatient Michael L Rine Facility:[facility] Start: 10-16-2022 End: 10-18-2022 Evaluation and management of inpatient CFNP Michael Rine Work Phone: [facility] [address] Work Phone: Start: 09-16-2022 End: 09-16-2022 ambulatory CFNP Michael L Rine Work Phone: [facility] Work Phone: Start: 09-16-2022 End: 09-16-2022 Departed Referred CFNP Michael Rine Work Phone: [facility] Work Phone: Start: 07-30-2022 End: 07-31-2022 ambulatory MERVAT VAZQUEZ Facility:[facility] Start: 09-19-2021 End: 09-19-2021 ambulatory Arin Toure Other [facility] Other Start: 09-19-2021 Office outpatient vi sit 25 minutes Arin Toure [facility] Start: 08-07-2020 End: 08-07-2020 ambulatory UNKNOWN PROVIDER Facility:[facility] Procedures Date Procedure Procedure Detail Performing Clinician Start: 09-16-2022 Streptococcus agalac tiae culture CFNP Michael Hutchinson Work Phone: Plan of Treatment Date Care Activity Detail Author Start: 2040 Zoster Vaccines (1 of 2) Zoste r Vaccines (1 of 2) [facility] Start: 10-17-2032 DTaP/Tdap/Td Vaccine s (10 - Td or Tdap) DTaP/Tdap/Td Vaccines (10 - Td or Tdap) [facility] Start: 04-05-2027 [facility] Start: 06-19-2025 End: 06-19-2025 Patient encounter procedure 06/19/2025 3:45 PM EST Office Visit [facility] [address] [place] [address] Mervat Vazquez, DO [address] [place] [address] [facility] Start: 09-26-2024 End: 09-26-2024 Patient encounter procedure 09/26/2024 3:30 PM EDT Office Visit [facility] [address] [place] [address] Mervat Vazquez, DO [address] [place] [address] [facility] Start: 06-20-2024 End: 06-20-2024 Telemedicine consultation with patient [facility] Comment on above: Arrived Start: 05-30-2024 End: 05-30-2024 Patient encounter procedure [facility] Comment on above: Encounter for gyneco logical examination without abnormal finding; Screening for malignant neoplasm of cervix Start: 03-21-2024 End: 03-21-2024 Patient encounter procedure 03/21/2024 10:30 AM EST Office Visit [facility] [address] [place] [phone] Justo Myers, RESEARCH LIBRARIAN [address] [place], [place] [id number] Arrived [facility] Comment on above: Arrived Start: 02-15-2024 End: 02-15-2024 Patient encounter procedure 02/15/2024 9:00 AM EDT Office Visit [facility] [address] [place] [id number] Justo Myers, RESEARCH LIBRARIAN [address] [place] [address] Arrived [facility] Comment on above: Arrived Start: 01-14-2024 COVID-19 Vaccine ( season) COVID-19 Vaccine ( season) [facility] Start: 01-14-2024 Influenza vaccination Influenza Vacc ine (#1) [facility] Start: 01-02-2024 End: 01-02-2024 Patient encounter procedure 01/02/2024 3:00 PM EDT Office Visit [facility] [address] [place] [id number] Michael Hutchinson, RESEARCH LIBRARIAN [address] [place] [address] Arrived [facility] Comment on above: Arrived Start: 10-18-2022 [facility] Start: 10-17-2022 Hospital admission [facility] Start: 10-16-2022 Hospital admission [facility] Start: 09-16-2022 Group B Streptococcu s Culture Group B Streptococcus Culture [facility] Start: 08-10-2011 Screening for malign ant neoplasm of cervix [facility] Start: 12-26-2001 Varicella vaccination Varicell a Vaccines (2 of 2 - 2-dose childhood series) [facility] Start: 1990 Lipid panel Lipid Panel [facility] IGP, RFX APTIMA HPV ASCU IGP, RF X APTIMA HPV ASCU Lab Routine Screening for malignant neoplasm of cervix Ordered: 05/30/2024 [facility] Work Phone: Comment on above: Ordered: 05/30/2024 Patient Education Post- Di eddie Instructions (MC) [facility] Work Phone: Patient referral [facility] Work Phone: Streptococcus agalac tiae [Presence] in Unspecified specimen by Organism specific culture [facility] Immunizations Immunization Date Immunization Notes Care Provider Fa cility 02-15-2024 influenza, injectabl e, quadrivalent, preservative free Justo Myers RESEARCH LIBRARIAN Work Phone: [facility] 02-17-2023 influenza, injectabl e, quadrivalent, preservative free Michael Rine RESEARCH LIBRARIAN Work Phone: [facility] 02-17-2023 influenza virus vacc ine, unspecified formulation Michael Rine RESEARCH LIBRARIAN Work Phone: [facility] 10-17-2022 tetanus toxoid, redu maria fernanda diphtheria toxoid, and acellular pertussis vaccine, adsorbed CFNP Michael Rine Work Phone: [facility] 04-20-2022 influenza, injectabl e, quadrivalent, preservative free Michael Rine RESEARCH LIBRARIAN Work Phone: [facility] 03-05-2021 influenza, injectabl e, quadrivalent, preservative free Michael Rine RESEARCH LIBRARIAN Work Phone: [facility] 10-13-2020 tetanus toxoid, redu maria fernanda diphtheria toxoid, and acellular pertussis vaccine, adsorbed Michael Rine RESEARCH LIBRARIAN Work Phone: [facility] 01-10-2017 tetanus toxoid, redu maria fernanda diphtheria toxoid, and acellular pertussis vaccine, adsorbed Michael Rine RESEARCH LIBRARIAN Work Phone: [facility] 08-14-2012 tetanus toxoid, redu maria fernanda diphtheria toxoid, and acellular pertussis vaccine, adsorbed Michael Rine RESEARCH LIBRARIAN Work Phone: [facility] 06-25-2009 human papilloma viru s vaccine, quadrivalent Michael Rine RESEARCH LIBRARIAN Work Phone: [facility] 03-02-2009 human papilloma viru s vaccine, quadrivalent Michael Rine RESEARCH LIBRARIAN Work Phone: [facility] 12-22-2008 human papilloma viru s vaccine, quadrivalent Michael Rine RESEARCH LIBRARIAN Work Phone: [facility] 12-22-2008 meningococcal polysaccharide (groups A, C, Y and W-135) diphtheria toxoid conjugate vaccine (MCV4P) Michael Rine RESEARCH LIBRARIAN Work Phone: [facility] 10-17-2003 TD(adult) unspecifie d formulation Michael Rine RESEARCH LIBRARIAN Work Phone: [facility] 11-28-2001 hepatitis B vaccine, pediatric or pediatric/adolescent dosage Michael Rine RESEARCH LIBRARIAN Work Phone: [facility] 11-28-2001 measles, mumps and rubella virus vaccine Michael Rine RESEARCH LIBRARIAN Work Phone: [facility] 08-13-2001 hepatitis B vaccine, pediatric or pediatric/adolescent dosage Michael Rine RESEARCH LIBRARIAN Work Phone: [facility] 05-16-2001 hepatitis B vaccine, pediatric or pediatric/adolescent dosage Michael Rine RESEARCH LIBRARIAN Work Phone: [facility] 05-16-2001 varicella virus vaccine Gerr i Rine RESEARCH LIBRARIAN Work Phone: [facility] 05-05-1995 diphtheria, tetanus toxoids and acellular pertussis vaccine, unspecified formulation Michael Rine RESEARCH LIBRARIAN Work Phone: [facility] 05-05-1995 trivalent poliovirus vaccine, live, oral Michael Rine RESEARCH LIBRARIAN Work Phone: [facility] 11-22-1991 diphtheria, tetanus toxoids and pertussis vaccine Michael Rine RESEARCH LIBRARIAN Work Phone: [facility] 11-22-1991 haemophilus influenz ae type b vaccine, conjugate unspecified formulation Michael Rine RESEARCH LIBRARIAN Work Phone: [facility] 11-22-1991 measles, mumps and rubella virus vaccine Michael Rine RESEARCH LIBRARIAN Work Phone: [facility] 11-22-1991 trivalent poliovirus vaccine, live, oral Michael Rine RESEARCH LIBRARIAN Work Phone: [facility] 02-18-1991 diphtheria, tetanus toxoids and pertussis vaccine Michael Rine RESEARCH LIBRARIAN Work Phone: [facility] 02-18-1991 haemophilus influenz ae type b vaccine, conjugate unspecified formulation Michael Rine RESEARCH LIBRARIAN Work Phone: [facility] 1990 diphtheria, tetanus toxoids and pertussis vaccine Michael Rine RESEARCH LIBRARIAN Work Phone: [facility] 1990 haemophilus influenz ae type b vaccine, conjugate unspecified formulation Michael Rine RESEARCH LIBRARIAN Work Phone: [facility] 1990 trivalent poliovirus vaccine, live, oral Michael Rine RESEARCH LIBRARIAN Work Phone: [facility] 1990 diphtheria, tetanus toxoids and pertussis vaccine Michael Rine RESEARCH LIBRARIAN Work Phone: [facility] 1990 haemophilus influenz ae type b vaccine, conjugate unspecified formulation Michael Rine RESEARCH LIBRARIAN Work Phone: [facility] 1990 trivalent poliovirus vaccine, live, oral Michael Rine RESEARCH LIBRARIAN Work Phone: [facility] Payers Date Payer Category Payer Self-pay [id number] [id number] 2014 [facility] HMP Member Subscriber Plan / Payer (Effective 2014-Present) Name: Shalonda Peace Relation to Subscriber: Self Name: Shalonda Peace Payer ID: [id number] (NAIC) Type: Not on file Address: [id number] [place] [id number] 2014 Unknown 1990 Unknown [id number]. 732 1990 Unknown [id number] [id number]. 593 1990 Unknown [id number] [id number]. 1244 1990 Unknown [id number] [id number]. 1259 1990 Unknown [id number] 2.16.840.1.864252.3.579.2. 9 1990 Unknown [id number] 2.16.840.1.457653.3.579.2. 1259 1990 Unknown [id number] 2.16.840.1.460511.3.579.2. 1259 1990 Unknown [id number] 2.16.840.1.000721.3.579.2. 1259 1990 Unknown [id number] 2.16.840.1.547247.3.579.2. 1259 1990 Unknown [id number] 2.16.840.1.945046.3.579.2. 1259 1990 Unknown [id number] 2.16.840.1.045065.3.579.2. 1259 1990 Unknown [id number] 2.16.840.1.837290.3.579.2. 1259 1959 [facility] [id number] Medicaid [place] [facility]10 [id number] Unknown [id number] [id number]. 531 Unknown [id number] [id number]. 531 Unknown [id number] [id number]. 531 Social History Date Type Detail Facility Unknown if ever smoked [facility] Other Start: 03-20-2023 End: 06-20-2024 Sex Assigned At [facility] Start: 11-16-2020 End: 09-28-2022 Tobacco smoking status [facility] Never smoked tobacco (finding) [facility] Start: 1990 Sex Assigned At Female [facility] Start: 09-28-2022 Tobacco use and exposure Smokeless tobacco non-user [facility] Start: 06-08-2023 Alcohol intake Ex-drinker (finding) [facility] Start: 03-20-2023 End: 06-20-2024 History of Social function [facility] Within the last year , have you been afraid of your partner or ex-partner? No [facility] How often do you att end meetings of the clubs or organizations you belong to? Patient refused [facility] Are you now , , , , never or living with a partner? [facility] How often to you hav e a drink containing alcohol? Monthly or less [facility] How many standard dr inks containing alcohol do you have on a typical day? 1 or 2 [facility] How often do you hav e 6 or more drinks on 1 occasion? Never [facility] (I/We) worried whecata er (my/our) food would run out before (I/we) got money to buy more. Never true [facility] Start: 02-17-2023 Education 17 [facility] Start: 10-21-2022 Alcohol Comment coffee 1-2 cups per day; coffee [facility] Start: 1990 Sex Assigned At Not on file [facility] Start: 01-02-2024 End: 05-30-2024 Alcoholic beverage intake Current drinker of alcohol (finding) [facility] Tobacco smoking stat us MEIS Tobacco smoking consumption unknown [facility] Work Phone: Do you feel stress - tense, restless, nervous, or anxious, or unable to sleep at night because your mind is troubled all the time - these days [OSQ] Not at all [facility] Goals Date Patient Goal Desired Activity /State Personal health goal Functional Status Date Assessment Result Facility 10-18-2022 Functional status Patient at Baseline [facility] Work Phone: Mental Status Date Assessment Result Facility 10-18-2022 Cognitive function Cognitive Sta tus Patient at Baseline [facility] Work Phone: Clinical Notes 09-19-2021 to 06-20-2024 Justo Myers, TETO - 06/20/2024 8:30 AM ESTTelephone Encounter - Michael Hutchinson NP - 06/17/2024 10:04 AM ESTTelephone Encounter - Michael Hutchinson NP - 06/17/2024 10:04 AM ESTPatient Instructions Note Date & Type Note Facility 06-20-2024 History of Presen t illness Narrative Images from the original note were not included. Shalonda Peace is a 33 y.o. female presents with chief complaint of No chief complaint on file. HPI: I performed this visit using real-time telehealth tools, including a (live video) connection between my location and the patient's location. Prior to initiating the services, I obtained the patient's informed verbal consent on 06/20/24 to perform this visit using the telehealth tools and answered all the questions the patient had about the telehealth interaction. Appointment for adderall checks Pt states she is tolerating current dosing well Denies headaches, vision changes, nosebleeds, chest pain Last refilled 05/29/24 SUBJECTIVE: MEDICATIONS: Current Outpatient Medications Medication Instructions albuterol HFA (ProAir HFA) 90 mcg/act inhaler 2 puffs, Inhalation, Every 4 hours PRN ALPRAZolam (XANAX) 0.25 mg, Oral, Daily PRN amphetamine-dextroamphetamine XR (Adderall XR) 30 MG 24 hr capsule 30 mg, Oral, Daily, Do not crush or chew. montelukast (SINGULAIR) 10 mg, Oral, Nightly Multiple Vitamin (multivitamin) tablet 1 tablet, Daily norethindrone-ethinyl estradiol (Microgestin 06/03) 1-20 MG-MCG tablet 1 tablet, Oral, Daily, Continuous active pills only sertraline (ZOLOFT) 100 mg, Oral, Daily SUMAtriptan (IMITREX) 25 mg, Oral, Once as needed, May repeat dose once in 2 hours if no relief. Do not exceed 2 doses in 24 hours. ALLERGIES: Allergies Allergen Reactions Cat Dander Unknown Dog Epithelium (Canis Lupus Familiaris) Unknown Pollen Extract Other Other Reaction(s): Unknown SURGICAL HISTORY: Past Surgical History: Procedure Laterality Date COLONOSCOPY 06/2018 rupinder Maloney. Disease: Hemorrhoids VAGINAL DELIVERY 11/16/2020 VAGINAL DELIVERY 10/16/2022 WISDOM TOOTH EXTRACTION FAMILY HISTORY: Family History Problem Relation Name Age of Onset Hyperlipidemia Father No Known Problems Sister Prostate cancer Maternal Grandfather Anxiety disorder Maternal Grandmother Parkinsonism Maternal Grandmother Hyperlipidemia Paternal Grandfather No Known Problems Son SOCIAL HISTORY: Social History Tobacco Use Smoking status: Never Smokeless tobacco: Never Vaping Use Vaping status: Never Used Substance Use Topics Alcohol use: Yes Comment: coffee 1-2 cups per day; coffee Drug use: Never Depression: At risk (10/02/2023) PHQ-2 PHQ-2 Score: 3 REVIEW OF SYMPTOMS: Review of Systems Constitutional: Negative for activity change, appetite change, chills, diaphoresis, fatigue and fever. Respiratory: Negative for cough, chest tightness, shortness of breath and wheezing. Cardiovascular: Negative for chest pain, palpitations and leg swelling. Psychiatric/Behavioral: Positive for decreased concentration. Negative for agitation, behavioral problems, confusion, dysphoric mood, hallucinations, self-injury, sleep disturbance and suicidal ideas. The patient is not nervous/anxious and is not hyperactive. OBJECTIVE: Visit Vitals LMP 05/15/2024 OB Status Having periods Smoking Status Never Physical Exam Constitutional: Appearance: Normal appearance. HENT: Head: Normocephalic and atraumatic. Cardiovascular: Comments: No difficulty speaking, sitting upright, breathing Pulmonary: Comments: No difficulty speaking, sitting upright, breathing Neurological: General: No focal deficit present. Mental Status: She is alert and oriented to person, place, and time. Mental status is at baseline. Psychiatric: Mood and Affect: Mood normal. Behavior: Behavior normal. Thought Content: Thought content normal. Judgment: Judgment normal. ASSESSMENT AND PLAN: Assessment/Plan Diagnoses and all orders for this visit: Attention deficit hyperactivity disorder (ADHD), predominantly inattentive type (CMS/HCC) Continue medication meditation Follow up in about 3 months (around 09/17/2024). documented in this encounter [facility] 06-17-2024 Telephone encounter Note Shalonda showed me at [facility] on 06-16-24, unable to flex her left hand fingers 4 and 5, recently cut the sinha surface and had stitched at the ER, advised that she needs to have ortho look at this, concern for flexor tendon injury. Call for appt. Referral sent. [facility] 06-17-2024 Miscellaneous Notes Shalonda showed me at [facility] on 06-16-24, unable to flex her left hand fingers 4 and 5, recently cut the sinha surface and had stitched at the ER, advised that she needs to have ortho look at this, concern for flexor tendon injury. Call for appt. Referral sent. documented in this encounter [facility] 06-05-2024 Telephone encounter Note Sinus issue See questionnaire for pertinent positive and negatives Total time 5 minutes [facility] Work Phone: 06-05-2024 Miscellaneous Notes Sinus issue See questionnaire for pertinent positive and negatives Total time 5 minutes documented in this encounter [facility] Work Phone: 05-30-2024 History of Presen t illness Narrative Images from the original note were not included. Mervat Vazquez D.O. Obstetrics and Gynecology Patient: Shalonda Peace : 1990 (33 y.o.) Yearly Wellness Exam Date: 05/30/2024 Reason for Visit - Chief Complaint Patient presents with Gynecologic Exam Denies bowel/bladder/breast concerns. Pt states PCP switched OCP d/t migraines. Pt states this is her 3rd pack with the new one. Pt states migraines have improved some, states she still does not feel right, pt unsure if she should give it a little bit longer. LMP 05/15/24 menses irregular with new OCP. Visit Vitals BP 120/84 Wt 190 lb LMP 05/15/2024 BMI 32.61 kg/m OB Status Having periods Smoking Status Never BSA 1.97 m Allergies Allergen Reactions Cat Dander Unknown Dog Epithelium (Canis Lupus Familiaris) Unknown Pollen Extract Other Other Reaction(s): Unknown History of Present Illness, Associated Treatments and Results - OB History Para Term AB Living 2 2 2 0 0 1 SAB IAB Ectopic Multiple Live Births 0 0 0 0 1 # Outcome Date GA Lbr Pee/2nd Weight Sex Type Anes PTL Lv 2 Term 10/16/22 39w2d 7 lb 11 oz F Vag-Spont EPI VAN 1 Term 11/16/20 39w0d M Obstetric Comments Pap smear 04/05/22 wnl Review of Systems - General: Chills denies. Allergy/Immunology: Rash Denies. ENT: Denies Difficulty swallowing. Endocrine: Denies Cold intolerance denies. Heat intolerance denied. Respiratory: Denies Chest pain denies. Shortness of breath denies. Breast: Denies Bloody nipple discharge denies. Breast lump denies. Cardiovascular: Denies Chest pain. Gastrointestinal: Abdominal pain denies. Blood in stool denies. Hematology: Easy bruising denies. Prolonged bleeding denies. Women Only: Breast lump denies. Vaginal bleeding between periods is denied. Vaginal discharge/itching denied. Genitourinary: Blood in urine denies. Painful urination denies. Incontinence denies. Skin: Hair changes. Neurologic: Seizures denied. Stroke denies. Psychiatric: Anxiety denies. Depressed mood denies. Medication Documentation Review Audit Reviewed by Zohreh Conteh MA ([employer] Worker) on 05/30/24 at 1527 Medication Order Taking? Sig Documenting Provider Last Dose Status albuterol HFA (ProAir HFA) 90 mcg/act inhaler [id number] No Inhale 2 puffs every 4 (four) hours if needed for wheezing Keely Han NP Taking Active ALPRAZolam (Xanax) 0.25 MG tablet [id number] No Take 1 tablet (0.25 mg) by mouth Daily as needed for anxiety. Justo Myers NP Taking 01/02/24 1692 amphetamine-dextroamphetamine XR (Adderall XR) 30 MG 24 hr capsule [id number] Take 1 capsule (30 mg) by mouth Daily Do not crush or chew. Justo Myers NP Active montelukast (Singulair) 10 MG tablet [id number] No Take 1 tablet (10 mg) by mouth at bedtime Keely Han NP Taking Active Multiple Vitamin (multivitamin) tablet [id number] No Take 1 tablet by mouth Daily Justo Myers NP Taking Active norethindrone (Micronor) 0.35 MG tablet [id number] Take 1 tablet (0.35 mg) by mouth Daily Justo Myers NP Active sertraline (Zoloft) 100 MG tablet [id number] No Take 1 tablet (100 mg) by mouth Daily Michael Hutchinson NP Taking Active SUMAtriptan (Imitrex) 25 MG tablet [id number] Take 1 tablet (25 mg) by mouth 1 (one) time if needed for migraine for up to 9 doses May repeat dose once in 2 hours if no relief. Do not exceed 2 doses in 24 hours. Justo Myers NP Active Past Medical History: Diagnosis Date ADHD (attention deficit hyperactivity disorder) (CMS/HCC) Anxiety associated with depression Diverticulitis Internal hemorrhoids Migraines (CMS/HCC) Post depression ([facility]) Post traumatic stress disorder ([facility]) 09/28/2022 Seasonal allergies Varicella zoster Past Surgical History: Procedure Laterality Date COLONOSCOPY 06/2018 rupinder Maloney. Disease: Hemorrhoids VAGINAL DELIVERY 11/16/2020 VAGINAL DELIVERY 10/16/2022 WISDOM TOOTH EXTRACTION Family History Problem Relation Name Age of Onset Hyperlipidemia Father No Known Problems Sister Prostate cancer Maternal Grandfather Anxiety disorder Maternal Grandmother Parkinsonism Maternal Grandmother Hyperlipidemia Paternal Grandfather No Known Problems Son Physical Exam - General appearance, mentation, extraocular movements, facial strength and movement, hearing, upper and lower extremity strength and tone, sensation to gross testing, coordination, and gait are normal or at baseline unless noted below. General Examination: GENERAL APPEARANCE: alert oriented well developed, well nourished. HEAD: normocephalic atraumatic. EYES: sclera anicteric. EARS: no obvious hearing deficit. SKIN: warm and dry. HEART: regular rate and rhythm. LUNGS: clear to auscultation bilaterally. CHEST: axillary nodes grossly normal. BREASTS: no masses palpable bilaterally, normal nipples bilaterally. ABDOMEN: soft, nontender, nondistended, no masses palpable. BACK: no costovertebral angle tenderness, no obvious scoliosis/kyphosis. FEMALE GENITOURINARY: normal vaginal mucosa, cervix absent of lesions, nontender, uterus AV, mobile, ovaries nonpalpable and nontender. EXTREMITIES: no edema. NEUROLOGIC: alert and oriented. PSYCH: cooperative with exam. Diagnoses and all orders for this visit: Encounter for gynecological examination without abnormal finding Screening for malignant neoplasm of cervix - IGP, RFX APTIMA HPV ASCU Surveillance of contraceptive pill - norethindrone-ethinyl estradiol (Microgestin 1/20) 1-20 MG-MCG tablet; Take 1 tablet by mouth Daily Continuous active pills only Pap, pelvic and breast exam completed. Findings of today's exam discussed with the patient. Continue MSBE. Ca/Vit D recommendations reviewed with the patient. The patient is to contact the office with any changes to her gynecological condition. The patient is to return in 1 year or as needed Discussed control and headaches/migraines. Seems to be more hormonal. Feeling worse on POP. Will start Loestrin 1/20 and take continuously. Patient to follow up in 3-4 months ICD-10-CM 1. Encounter for gynecological examination without abnormal finding Z01.419 2. Screening for malignant neoplasm of cervix Z12.4 IGP, RFX APTIMA HPV ASCU 3. Surveillance of contraceptive pill Z30.41 norethindrone-ethinyl estradiol (Microgestin 06/03) 1-20 MG-MCG tablet documented in this encounter [facility] 04-30-2024 Miscellaneous Notes PT requesting refill on adderall. Please send to [facility]. documented in this encounter [facility] 04-30-2024 Telephone encounter Note PT requesting refill on adderall. Please send to [facility]. [facility] 04-01-2024 Telephone encounter Note Sent as requested. Spoke with pt outside of office this weekend and is doing well. [facility] 04-01-2024 Miscellaneous Notes Sent as requested. Spoke with pt outside of office this weekend and is doing well. She needs a refill on adderall --med loaded [facility] documented in this encounter [facility] 04-01-2024 Telephone encounter Note She needs a refill on adderall --med loaded Send to [facility] in [place] [facility] 03-21-2024 History of Presen t illness Narrative Shalonda Peace is a 33 y.o. female presents with chief complaint of No chief complaint on file. HPI: HPI Patient Reported S/S to Nurse: Reviewed H- Reports hx of having infrequent headaches, but headaches/migraines have been worse 03/2023 after menses restarted after childbirth. Headaches/migraines are mainly limited during menses, but have been getting worse over the past 2 months. During last mense pt reports having daily headache as well as 3 migraines. Can start in the middle of the night. C/o nausea with migraines Denies auras, sensitivity to light/sound, or vomiting Tried ibu, Excedrin migraine. 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 montelukast (SINGULAIR) 10 mg, Oral, Nightly Multiple Vitamin (multivitamin) tablet 1 tablet, Daily norethindrone (MICRONOR) 0.35 mg, Oral, Daily sertraline (ZOLOFT) 100 mg, Oral, Daily SUMAtriptan (IMITREX) 25 mg, Oral, Once as needed, May repeat dose once in 2 hours if no relief. Do not exceed 2 doses in 24 hours. ALLERGIES: Allergies Allergen Reactions Cat Hair Extract Unknown Dog Epithelium (Canis Lupus Familiaris) Unknown Pollen Extract Other Other Reaction(s): Unknown SURGICAL HISTORY: Past Surgical History: Procedure Laterality Date COLONOSCOPY 06/2018 rupinder Maloney. Disease: Hemorrhoids VAGINAL DELIVERY 11/16/2020 VAGINAL DELIVERY 10/16/2022 WISDOM TOOTH EXTRACTION FAMILY HISTORY: Family History Problem Relation Name Age of Onset Hyperlipidemia Father No Known Problems Sister Prostate cancer Maternal Grandfather Anxiety disorder Maternal Grandmother Parkinsonism Maternal Grandmother Hyperlipidemia Paternal Grandfather No Known Problems Son SOCIAL HISTORY: Social History Tobacco Use Smoking status: Never Smokeless tobacco: Never Vaping Use Vaping status: Never Used Substance Use Topics Alcohol use: Yes Comment: coffee 1-2 cups per day; coffee Drug use: Never Depression: At risk (10/02/2023) PHQ-2 PHQ-2 Score: 3 REVIEW OF SYMPTOMS: Review of Systems Constitutional: Negative for activity change, appetite change, chills, diaphoresis, fatigue and fever. HENT: Negative for congestion. Eyes: Negative for photophobia, pain, discharge, redness, itching and visual disturbance. Respiratory: Negative for cough, chest tightness, shortness of breath and wheezing. Cardiovascular: Negative for chest pain, palpitations and leg swelling. Gastrointestinal: Positive for nausea. Genitourinary: Negative for menstrual problem. Neurological: Positive for headaches. Psychiatric/Behavioral: Negative. OBJECTIVE: Visit Vitals BP 130/80 Pulse 92 Ht 5' 4 Wt 186 lb LMP 03/11/2024 (Exact Date) SpO2 97% BMI 31.93 kg/m OB Status Having periods Smoking Status Never BSA 1.95 m Physical Exam Vitals and nursing note reviewed. Constitutional: Appearance: Normal appearance. She is not ill-appearing. HENT: Head: Normocephalic and atraumatic. Cardiovascular: Rate and Rhythm: Normal rate and regular rhythm. Pulses: Normal pulses. Heart sounds: Normal heart sounds. Pulmonary: Effort: Pulmonary effort is normal. No respiratory distress. Breath sounds: Normal breath sounds. No wheezing. Chest: Chest wall: No tenderness. Skin: General: Skin is warm and dry. Neurological: General: No focal deficit present. Mental Status: She is alert and oriented to person, place, and time. Mental status is at baseline. Sensory: No sensory deficit. Motor: No weakness. Coordination: Coordination normal. Gait: Gait normal. Psychiatric: Mood and Affect: Mood normal. Behavior: Behavior normal. Thought Content: Thought content normal. Judgment: Judgment normal. ASSESSMENT AND PLAN: Assessment/Plan Diagnoses and all orders for this visit: Chronic nonintractable headache, unspecified headache type - SUMAtriptan (Imitrex) 25 MG tablet; Take 1 tablet (25 mg) by mouth 1 (one) time if needed for migraine for up to 9 doses May repeat dose once in 2 hours if no relief. Do not exceed 2 doses in 24 hours. - norethindrone (Micronor) 0.35 MG tablet; Take 1 tablet (0.35 mg) by mouth Daily Rest in a quiet, dark room. Apply warm compress to back of neck or cool pack to eyes. Massage neck and temples. Use [id number] NSAIDS or Tylenol as needed. Decrease caffeine intake over time. Increase fluids. Reduce stressors. Encourage routine exercise and sleep habits. For prolonged screen time users: every 20 minutes look at something 20 feet away for 20 seconds, use blue light restricting aides, and proper ergonomics to prevent eye and neck strain. Frequent or worsening headaches: document date and time of onset, location on body, duration, description of pain, radiation of pain to another body part, what was happening at time of onset, last menstrual cycle, last meal, fluid intake, stressors, things that made it better, things that made it worse. Attention deficit hyperactivity disorder (ADHD), unspecified ADHD type (CMS/HCC) Managed Continue refills when due Follow up in about 3 months (around 06/21/2024) for adderall check. documented in this encounter [facility] 03-01-2024 Telephone encounter Note Refill sent as requested [facility] 03-01-2024 Miscellaneous Notes Refill sent as requested Requesting refill adderall to [facility] in [place]. Last appt 02-14. HH out of office documented in this encounter [facility] 03-01-2024 Telephone encounter Note Requesting refill adderall to [facility] in [place]. Last appt 02-14. HH out of office [facility] 02-15-2024 History of Presen t illness Narrative Shalonda Peace is a 33 y.o. female presents with chief complaint of wellness HPI: HPI Denies current health concerns. 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 montelukast (SINGULAIR) 10 mg, Oral, Nightly Multiple Vitamin (multivitamin) tablet 1 tablet, Oral, Daily sertraline (ZOLOFT) 100 mg, Oral, Daily ALLERGIES: Allergies Allergen Reactions Cat Hair Extract Unknown Dog Epithelium (Canis Lupus Familiaris) Unknown Pollen Extract Other Other Reaction(s): Unknown SURGICAL HISTORY: Past Surgical History: Procedure Laterality Date COLONOSCOPY 06/2018 rupinder Maloney. Disease: Hemorrhoids VAGINAL DELIVERY 11/16/2020 VAGINAL DELIVERY 10/16/2022 WISDOM TOOTH EXTRACTION FAMILY HISTORY: Family History Problem Relation Name Age of Onset Hyperlipidemia Father No Known Problems Sister Prostate cancer Maternal Grandfather Anxiety disorder Maternal Grandmother Parkinsonism Maternal Grandmother Hyperlipidemia Paternal Grandfather No Known Problems Son SOCIAL HISTORY: Social History Tobacco Use Smoking status: Never Smokeless tobacco: Never Vaping Use Vaping status: Never Used Substance Use Topics Alcohol use: Yes Comment: coffee 1-2 cups per day; coffee Drug use: Never Depression: At risk (10/02/2023) PHQ-2 PHQ-2 Score: 3 REVIEW OF SYMPTOMS: Review of Systems Constitutional: Negative for activity change, appetite change, fatigue and fever. HENT: Negative for hearing loss, trouble swallowing and voice change. Eyes: Negative for visual disturbance. Respiratory: Negative for cough, chest tightness, shortness of breath and wheezing. Cardiovascular: Negative for chest pain, palpitations and leg swelling. Gastrointestinal: Negative for constipation, diarrhea, nausea and vomiting. Genitourinary: Negative for difficulty urinating, frequency and urgency. Musculoskeletal: Negative for arthralgias, gait problem and myalgias. Neurological: Negative for dizziness, syncope, weakness, light-headedness, numbness and headaches. Psychiatric/Behavioral: Positive for decreased concentration. Negative for agitation, behavioral problems, confusion, dysphoric mood, hallucinations, self-injury, sleep disturbance and suicidal ideas. The patient is nervous/anxious. The patient is not hyperactive. Endocrine: Negative for cold intolerance, heat intolerance, polydipsia, polyphagia and polyuria. Allergic/Immunologic: Negative for environmental allergies. OBJECTIVE: Visit Vitals BP 112/84 Pulse 62 Ht 5' 4 Wt 185 lb SpO2 98% BMI 31.76 kg/m OB Status Having periods Smoking Status Never BSA 1.95 m Physical Exam Vitals and nursing note reviewed. Constitutional: Appearance: Normal appearance. She is normal weight. HENT: Head: Normocephalic and atraumatic. Right Ear: Tympanic membrane, ear canal and external ear normal. Left Ear: Tympanic membrane, ear canal and external ear normal. Nose: Nose normal. Mouth/Throat: Mouth: Mucous membranes are moist. Pharynx: Oropharynx is clear. No oropharyngeal exudate or posterior oropharyngeal erythema. Eyes: Extraocular Movements: Extraocular movements intact. Conjunctiva/sclera: Conjunctivae normal. Pupils: Pupils are equal, round, and reactive to light. Cardiovascular: Rate and Rhythm: Normal rate and regular rhythm. Pulses: Normal pulses. Heart sounds: Normal heart sounds. No murmur heard. No friction rub. No gallop. Pulmonary: Effort: Pulmonary effort is normal. No respiratory distress. Breath sounds: Normal breath sounds. No wheezing. Chest: Chest wall: No tenderness. Abdominal: General: Abdomen is flat. Bowel sounds are normal. There is no distension. Palpations: Abdomen is soft. Tenderness: There is no abdominal tenderness. There is no guarding. Musculoskeletal: General: No swelling, tenderness, deformity or signs of injury. Normal range of motion. Cervical back: Normal range of motion and neck supple. Right lower leg: No edema. Left lower leg: No edema. Lymphadenopathy: Cervical: No cervical adenopathy. Skin: General: Skin is warm and dry. Capillary Refill: Capillary refill takes less than 2 seconds. Coloration: Skin is not jaundiced. Findings: No bruising, erythema or rash. Neurological: General: No focal deficit present. Mental Status: She is alert and oriented to person, place, and time. Mental status is at baseline. Cranial Nerves: No cranial nerve deficit. Sensory: No sensory deficit. Motor: No weakness. Coordination: Coordination normal. Gait: Gait normal. Psychiatric: Mood and Affect: Mood normal. Behavior: Behavior normal. Thought Content: Thought content normal. Judgment: Judgment normal. ASSESSMENT AND PLAN: Assessment/Plan Diagnoses and all orders for this visit: Wellness examination Wellness performed at office visit today. Height, weight, BMI, problem list, and immunizations records reviewed. Dental care discussed with patient. Encouraged annual vision screenings and semi-annual dental care. Encouraged to eat a diet that is rich in plant-based foods and lean protein. Encouraged regular periods of exercise. Limit or eliminate junk food and sources of excess calories. Encouraged to maintain open communication with provider regarding any changes in condition. Encouraged 150 minutes of exercise weekly or amount appropriate to current level of function. Discussed family/friend/social support and importance of maintaining emotional connections. Follow up as discussed. Patient verbalized understanding of importance of keeping open communication with health care providers. Flu vaccine need administered Need for influenza vaccination - influenza, injectable, quadrivalent, PF free ([id number]) (Fluzone / Fluarix / Alluria / Flulaval Quadrivalent) Internal hemorrhoids Avoid straining Stool softener as needed Anxiety Continue ssri Attention deficit hyperactivity disorder (ADHD), unspecified ADHD type ([facility]) Continue medication Follow up in about 3 months (around 05/17/2024) for adderall check. documented in this encounter [facility] 01-30-2024 Telephone encounter Note Sent as requested [facility] 01-30-2024 Miscellaneous Notes Sent as requested PT called in asking for a refill on adderall 30mg, [facility] documented in this encounter [facility] 01-30-2024 Telephone encounter Note PT called in asking for a refill on adderall 30mg, please [facility] to [facility] 01-02-2024 Telephone encounter Note [facility] no [facility]. Rx sent at pts request to [facility] 01-02-2024 Miscellaneous Notes [facility]. [facility] sent [facility] documented in this encounter [facility] 01-02-2024 History of Presen t illness Narrative Shalonda Peace is a 33 y.o. female presents with chief complaint of Follow-up (Does not feel that the Adderall is working as well as it had used to. ) HPI: Here for recheck She has not had much in the way of anxiety attacks recently Comes in waves , but they have been better Sees counselor every other week, benefits Attn deficit still an issue Restarted the adderall after the of her daughter in summer and she has not found it to be helpful as previous Has ongoing issues with attn issues, staying on task, completing tasks etc at home. SUBJECTIVE: MEDICATIONS: Current Outpatient Medications Medication Instructions albuterol HFA (ProAir HFA) 90 mcg/act inhaler 2 puffs, Inhalation, Every 4 hours PRN ALPRAZolam (XANAX) 0.25 mg, Oral, Daily PRN amphetamine-dextroamphetamine XR (Adderall XR) 20 MG 24 hr capsule 20 mg, Oral, Every morning amphetamine-dextroamphetamine XR (Adderall XR) 30 MG 24 hr capsule 30 mg, Oral, Daily, Do not crush or chew. montelukast (SINGULAIR) 10 mg, Oral, Nightly sertraline (ZOLOFT) 100 mg, Oral, Daily ALLERGIES: Allergies Allergen Reactions Cat Hair Extract Unknown Dog Epithelium (Canis Lupus Familiaris) Unknown Pollen Extract Other Other Reaction(s): Unknown SURGICAL HISTORY: Past Surgical History: Procedure Laterality Date COLONOSCOPY 06/2018 rupinder Maloney. Disease: Hemorrhoids VAGINAL DELIVERY 11/16/2020 VAGINAL DELIVERY 10/16/2022 WISDOM TOOTH EXTRACTION FAMILY HISTORY: Family History Problem Relation Name Age of Onset Hyperlipidemia Father No Known Problems Sister Prostate cancer Maternal Grandfather Anxiety disorder Maternal Grandmother Parkinsonism Maternal Grandmother Hyperlipidemia Paternal Grandfather No Known Problems Son SOCIAL HISTORY: Social History Tobacco Use Smoking status: Never Smokeless tobacco: Never Vaping Use Vaping status: Never Used Substance Use Topics Alcohol use: Yes Comment: coffee 1-2 cups per day; coffee Drug use: Never Depression: At risk (10/02/2023) PHQ-2 PHQ-2 Score: 3 REVIEW OF SYMPTOMS: Review of Systems Constitutional: Negative for activity change. Eyes: Negative for visual disturbance. Respiratory: Negative for cough and wheezing. Cardiovascular: Negative for chest pain and leg swelling. Gastrointestinal: Negative for abdominal pain. Genitourinary: Negative for difficulty urinating. Musculoskeletal: Negative for arthralgias. Skin: Negative. Neurological: Negative for weakness. Psychiatric/Behavioral: Negative. Allergic/Immunologic: Negative for environmental allergies. OBJECTIVE: Visit Vitals BP 112/68 (BP Location: Left arm, Patient Position: Sitting, BP Cuff Size: Adult) Pulse 99 Temp 99.1 F (Tympanic) Resp 18 Ht 5' 4 Wt 182 lb 12.8 oz LMP 12/25/2023 (Exact Date) SpO2 99% BMI 31.38 kg/m OB Status Having periods Smoking Status Never BSA 1.94 m Physical Exam Constitutional: Appearance: Normal appearance. Eyes: Pupils: Pupils are equal, round, and reactive to light. Cardiovascular: Rate and Rhythm: Normal rate and regular rhythm. Pulses: Normal pulses. Heart sounds: Normal heart sounds. Pulmonary: Effort: Pulmonary effort is normal. Breath sounds: Normal breath sounds. Musculoskeletal: Cervical back: Normal range of motion and neck supple. Skin: General: Skin is warm and dry. Neurological: General: No focal deficit present. Mental Status: She is alert. Psychiatric: Mood and Affect: Mood normal. Comments: Alert and interactive Good eye contact Wt up 4 pounds ASSESSMENT AND PLAN: Assessment/Plan Diagnoses and all orders for this visit: Vitamin D deficiency Comments: continue the daily supplement Anxiety Comments: good control at this time,. we will continue the same sertraline 100mg and the counseling situation as previous Orders: - sertraline (Zoloft) 100 MG tablet; Take 1 tablet (100 mg) by mouth Daily Attention deficit hyperactivity disorder (ADHD), predominantly inattentive type (CMS/HCC) Comments: we will trial the 30mg adderall dose. discussed admin and common SE. call as needed Orders: - amphetamine-dextroamphetamine XR (Adderall XR) 30 MG 24 hr capsule; Take 1 capsule (30 mg) by mouth Daily Do not crush or chew. Follow up in about 4 weeks (around 01/30/2024) for well visit. documented in this encounter [facility] 01-02-2024 Instructions Michael Hutchinson NP - 01/02/2024 3:00 PM EDT Increase the adderall to 30 mg. Same sertraline Good whole foods nutrition documented in this encounter [facility] 06-28-2023 Telephone encounter Note Spoke with pt is aware, no questions at this time. [facility] 06-28-2023 Miscellaneous Notes Spoke with pt is aware, no questions at this time. 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 She is doing well and denies complaints. She is ambulating and urinating without difficulty. Pt has not had a BM since delivery. Pain/cramping is tolerable. Pt reports minimal vaginal bleeding. Pt denies LH, dizziness, CP, shortness of breath, swelling, calf tenderness, WATERS, vision changes. Baby is doing well and is formula feeding. OB - PN: Obj Exam Physical Exam Vital signs: Vital Signs - 8 hr 10/16/22 23:01 10/16/22 23:04 10/16/22 23:12 Temperature Pulse Rate 80 81 90 Respiratory Rate Blood Pressure 144/77 H 147/84 H 143/68 H 02 Sat by Pulse Oximetry Oxygen Delivery Method 10/16/22 23:13 10/16/22 23:16 10/16/22 23:23 Temperature Pulse Rate 92 H 89 88 Respiratory Rate Blood Pressure 144/68 H 158/74 H 132/64 02 Sat by Pulse Oximetry Oxygen Delivery Method 10/16/22 23:25 10/16/22 23:28 10/16/22 23:34 Temperature Pulse Rate 93 H 117 H 105 H Respiratory Rate Blood Pressure 141/64 H 133/60 112/53 L 02 Sat by Pulse Oximetry Oxygen Delivery Method 10/16/22 23:35 10/16/22 23:36 10/16/22 23:37 Temperature 97.0 F L Pulse Rate 100 H Respiratory Rate Blood Pressure 122/57 L 02 Sat by Pulse Oximetry 98 Oxygen Delivery Method 10/16/22 23:40 10/16/22 23:41 10/16/22 23:44 Temperature Pulse Rate 97 H 101 H Respiratory Rate Blood Pressure 122/58 L 105/56 L 02 Sat by Pulse Oximetry 98 Oxygen Delivery Method 10/16/22 23:50 10/17/22 00:03 10/17/22 00:18 Temperature Pulse Rate 97 H 86 93 H Respiratory Rate Blood Pressure 114/62 123/70 121/66 02 Sat by Pulse Oximetry Oxygen Delivery Method 10/17/22 00:33 10/17/22 00:48 10/17/22 01:03 Temperature Pulse Rate 85 89 83 Respiratory Rate Blood Pressure 131/60 118/59 L 108/53 L 02 Sat by Pulse Oximetry Oxygen Delivery Method 10/17/22 01:18 10/17/22 01:33 10/17/22 01:48 Temperature Pulse Rate 88 90 88 Respiratory Rate Blood Pressure 116/56 L 121/60 105/62 02 Sat by Pulse Oximetry Oxygen Delivery Method 10/17/22 02:03 10/17/22 02:18 10/17/22 02:33 Temperature Pulse Rate 90 83 81 Respiratory Rate Blood Pressure 126/58 L 118/58 L 123/59 L 02 Sat by Pulse Oximetry Oxygen Delivery Method 10/17/22 03:31 10/17/22 04:04 10/17/22 04:15 Temperature 96.8 F L Pulse Rate 86 80 Respiratory Rate Blood Pressure 132/91 118/62 02 Sat by Pulse Oximetry Oxygen Delivery Method 10/17/22 05:00 10/17/22 05:45 10/17/22 06:01 Temperature 97.5 F L Pulse Rate 81 74 90 Respiratory Rate Blood Pressure 119/62 128/70 135/77 02 Sat by Pulse Oximetry Oxygen Delivery Method 10/16/22 23:45 10/17/22 00:15 10/17/22 00:30 Temperature Pulse Rate Respiratory Rate 18 18 18 Blood Pressure 02 Sat by Pulse Oximetry Oxygen Delivery Method 10/17/22 00:45 10/17/22 00:00 10/17/22 01:00 Temperature Pulse Rate Respiratory Rate 18 18 18 Blood Pressure 02 Sat by Pulse Oximetry Oxygen Delivery Method 10/16/22 23:00 10/16/22 23:27 10/17/22 01:15 Temperature Pulse Rate Respiratory Rate 18 18 18 Blood Pressure 02 Sat by Pulse Oximetry Oxygen Delivery Method Room Air Room Air 10/17/22 02:00 10/17/22 02:30 10/17/22 01:30 Temperature Pulse Rate Respiratory Rate 18 18 18 Blood Pressure 02 Sat by Pulse Oximetry Oxygen Delivery Method 10/17/22 03:30 10/17/22 04:30 10/17/22 05:30 Temperature Pulse Rate Respiratory Rate 18 18 18 Blood Pressure 02 Sat by Pulse Oximetry Oxygen Delivery Method 10/17/22 06:30 Temperature Pulse Rate Respiratory Rate 18 Blood Pressure 02 Sat by Pulse Oximetry 97 Oxygen Delivery Method Narrative: General: Resting comfortably in bed in no acute distress HEENT: Conjunctiva clear. No scleral icterus. EOMI CV: Regular rate and rhythm, no murmurs, gallops or rubs Respiratory: CTAB. Breathing comfortably on room air. No wheezes, rales or rhonchi Abdominal: Soft, nontender, nondistended. Normoactive bowel sounds. Fundus is firm below the umbilicus. Extremities: No swelling, cyanosis or clubbing. Peripheral pulses intact. No calf tenderness Skin: No rashes or lesions Neuro: CN II-XII grossly intact. Sensation grossly intact. Motor function grossly intact Psych: Good eye contact. Appropriate affect and mood. Speech is clear OB - PN: Obj Data Labs 10/17/22 06:39 Labs: 10/17/22 06:39: Uncorrected WBC Count 15.4 H, MCV 86.7, MCH 28.9, MCHC 33.4, RDW13.9, Plt Count 214, MPV 8.0, Neut % (Auto) 87.1, Lymph % (Auto) 7.5, [place] % (Auto) 5.0, Eos % (Auto) 0.1, Baso % (Auto) 0.3, Nucleat RBC Rel Count 0.0, Neut# (Auto) 13.4 H, Lymph # (Auto) 1.2, [place] # (Auto) 0.8, Eos # (Auto) 0.0, Baso #(Auto) 0.1 10/16/22 23:10: RPR w/Rflx to Titer Pending 10/16/22 23:10: Uncorrected WBC Count 18.4 H, MCV 87.9, MCH 29.3, MCHC 33.4, RDW14.0, Plt Count 241, MPV 9.1, Neut % (Auto) 81.0, Lymph % (Auto) 12.6, [place] % (Auto) 5.0, Eos % (Auto) 0.9, Baso % (Auto) 0.5, Nucleat RBC Rel Count 0.3, Neut# (Auto) 14.9 H, Lymph # (Auto) 2.3, [place] # (Auto) 0.9 H, Eos # (Auto) 0.2, Baso# (Auto) 0.1, Platelet Estimate Normal, Plt Morphology Comment Normal, RBC Morphology Normal 10/16/22 20:29: Urine Opiates Screen Negative, Ur Barbiturates Screen Negative, Ur Phencyclidine Scrn Negative, Ur Amphetamines Screen Negative, U Benzodiazepines Scrn Negative, Urine Cocaine Screen Negative 10/16/22 20:29: Urine Color Yellow, Urine Appearance Clear, Urine pH 7.0, Ur Specific Recluse 1.007, Urine Protein Negative, Urine Glucose (UA) Normal, UrineKetones Negative, Urine Occult Blood 2+ H, Urine Nitrite Negative, Urine Bilirubin Negative, Urine Urobilinogen Normal, Ur Leukocyte Esterase 1+ H, UrineRBC 3-4, Urine WBC 3-4, Ur Squamous Epith Cells 3-4 H, Urine Bacteria None seen,Hyaline Casts 0-8 Assessment/Plan Assessment (1) Status post normal vaginal delivery: Status: Acute Plan day: 1 Vaginal delivery plan (if applicable): routine care Documented By: Mervat Vazquez DO 10/17/22 06 59 Signed By: <Electronically signed by Mervat Vazquez, > 10/17/22 0949 [facility] Work Phone: [phone]) 817-387106-04-2023 [facility]* Encounter Date Diagnosis Assessment Notes Treatment Notes Treatment Clinical Notes September, Cough (ICD-10 - R05.9) September, Allergic sinusitis (ICD-10 - J30.9) Take medication as directed. Use saline nasal spray may help with symptom relief. Follow up with primary care provider if symptoms persist as a therapy plan may need to be made. [facility] Other Evaluation noteNo assessment information available [facility] Work Phone: evaluation note* Diagnosis Onset Date Resolution Status Status post normal vaginal delivery acute [facility] Work Phone: evaluation note* Diagnosis Anxiety Anxiety state, unspecified [facility] Diagnosis Wellness examination- Primary Flu vaccine need Need for influenza vaccination Need for prophylactic vaccination and inoculation against influenza Internal hemorrhoids Internal hemorrhoids without mention of complication Anxiety Anxiety state, unspecified Attention deficit hyperactivity disorder (ADHD), unspecified ADHD type (CMS/HCC) [facility] Diagnosis Attention deficit hyperactivity disorder (ADHD), predominantly inattentive type (CMS/HCC) [facility] Diagnosis Chronic nonintractable headache, unspecified headache type- Primary Attention deficit hyperactivity disorder (ADHD), unspecified ADHD type (CMS/HCC) [facility] Diagnosis Attention deficit hyperactivity disorder (ADHD), predominantly inattentive type (CMS/HCC) [facility] Diagnosis Attention deficit hyperactivity disorder (ADHD), predominantly inattentive type (CMS/HCC) [facility] Diagnosis Attention deficit hyperactivity disorder (ADHD), predominantly inattentive type (CMS/HCC) [facility]* Diagnosis Vitamin D deficiency- Primary Anxiety Anxiety state, unspecified Attention deficit hyperactivity disorder (ADHD), predominantly inattentive type (CMS/HCC) [facility] Diagnosis Attention deficit hyperactivity disorder (ADHD), predominantly inattentive type (CMS/HCC) [facility]* Diagnosis Encounter for gynecological examination without abnormal finding Screening for malignant neoplasm of cervix Screening for malignant neoplasm of the cervix Surveillance of contraceptive pill Surveillance of previously prescribed contraceptive pill [facility]* Diagnosis Rhinosinusitis- Primary documented in this encounter [facility] Work Phone: Evaluation note* Diagnosis Injury of flexor tendon of left hand, subsequent encounter- Primary [facility]* Diagnosis Attention deficit hyperactivity disorder (ADHD), predominantly inattentive type (CMS/HCC)- Primary [facility] Narrative - Reported* Type Description Date Medical History Anxiety Medical History Insomnia Medical History Seasonal allergic rhinitis [facility] Other Instructions* Attachments The following attachments cannot be sent through Care Everywhere. 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 She is doing well and denies complaints. She is ambulating and urinating without difficulty. Pt has had a BM since delivery. Pain/cramping is tolerable. Pt reports minimal vaginal bleeding. Pt denies LH, dizziness, CP, shortness of breath, swelling, calf tenderness, WATERS, vision changes. Baby is doing well and is formula feeding. OB - PN: Obj Exam Physical Exam Vital signs: Vital Signs - 8 hr 10/18/22 00:49 Temperature 97.8 F Pulse Rate 72 Respiratory Rate 20 Blood Pressure 133/75 02 Sat by Pulse Oximetry 98 Oxygen Delivery Method Room Air Narrative: General: Resting comfortably in bed in no acute distress HEENT: Conjunctiva clear. No scleral icterus. EOMI CV: Regular rate and rhythm, no murmurs, gallops or rubs Respiratory: CTAB. Breathing comfortably on room air. No wheezes, rales or rhonchi Abdominal: Soft, nontender, nondistended. Normoactive bowel sounds. Fundus is firm below the umbilicus. Extremities: No swelling, cyanosis or clubbing. Peripheral pulses intact. No calf tenderness Skin: No rashes or lesions Neuro: CN II-XII grossly intact. Sensation grossly intact. Motor function grossly intact Psych: Good eye contact. Appropriate affect and mood. Speech is clear OB - PN: Obj Data Labs 10/17/22 06:39 Labs: 10/16/22 23:10: RPR w/Rflx to Titer Non reactive Assessment/Plan Assessment (1) Status post normal vaginal delivery: Status: Acute Plan day: 2 Vaginal delivery plan (if applicable): routine care, discharge home and follow up 6 weeks Documented By: Valdemar Martinez DO 10/18/22 0724 Signed By: <Electronically signed by Valdemar Martinez DO> 10/18/22 1055 [facility] Work Phone: Summary Purpose Family History No Family History Records Found Relationship Condition Age at Onset Recorded Date/T flores Not Specified Hyperlipidemia Unknown grandparent Malignant neoplasm of prostate Unknown Advance Directives No Advanced Directives Records Found Advance Directive Response Recorded Date/ Time Advance Directives No August 20 12:14pm Advance Directive Response Recorded Date/ Time Advance Directives No August 20 11:14am Chief Complaint and Reason for Visit Chief Complaint Z3A.35 Z36.85 39 wks iup-contractions Reason for Visit Status post normal v aginal delivery Chief Complaint Z13.29 Z13.6 E55.9 Z 13.21 Z13.220 Z13.1 R73.09 Additional Source Comments INFORMATION SOURCE (unrecogn ized section and content) DATE CREATED AUTHOR 06/17/2020 [facility] DATE CREATED AUTHOR AUTHOR'S ORGANIZ ATION 06/19/2021 [facility] DATE CREATED AUTHOR AUTHOR'S ORGANIZ ATION 08/07/2022 [facility] DATE CREATED AUTHOR AUTHOR'S ORGANIZ ATION 06/26/2023 [facility] DATE CREATED AUTHOR AUTHOR'S ORGANIZ ATION 06/07/2024 [facility] DATE CREATED AUTHOR AUTHOR'S ORGANIZ ATION 06/22/2024 [facility] EPIC REASON FOR VISIT (unrecogniz ed section and content) Reason Comments Med Change Request Reason Comments wellness Reason Onset Date Comments refill Adderall 04/01/2024 Reason Onset Date Comments Med Refill 01/30/2024 Reason Onset Date Comments Med Refill 04/30/2024 Reason Comments Follow-up Does not feel that t he Adderall is working as well as it had used to. Reason Comments Gynecologic Exam Denies bowel/bladder /breast concerns. Pt states PCP switched OCP d/t migraines. Pt states this is her 3rd pack with the new one. Pt states migraines have improved some, states she still does not feel right, pt unsure if she should give it a little bit longer. LMP 05/15/24 menses irregular with new OCP. Reason Comments Sinus Problem Entered automaticall y based on patient selection in [facility]. Care Teams (unrecognized sec tion and content) Team Status: Active Member Role Status Dates BREANNA Langford Primary Care Provider Active Team Status: Inactive Member Role Status Dates BREANNA Langford Primary Care Provider Active Mervat Vazquez DO Attending Provider Active Team Status: Inactive Member Role Status Dates BREANNA Langford Primary Care Provider Active Valdemar Martinez DO Admit Provider, Attending Provider Active Team Status: Inactive Member Role Status Dates BREANNA Langford Primary Care Provider Active Start: June 16, 2023 End: June 16, 2023 Justo Myers NP-C Attending Provider Active Start: June 16, 2023 End: June 16, 2023 Broaching Machine Set Up Operator Relationship Specialty Start Date End Date Michael Hutchinson RESEARCH LIBRARIAN [address] [place] [address] PCP - [facility] [employer] 08/13/20 Unallocated, [facility] Provider [address] [place] [address] PCP - General 10/04/22 Broaching Machine Set Up Operator Relationship Specialty Start Date End Date Michael Hutchinson, RESEARCH LIBRARIAN [address] [place] [address] PCP - [facility] [employer] 08/13/20 Unallocated, [facility] Provider [address] [place] [address] PCP - General 10/04/22 Broaching Machine Set Up Operator Relationship Specialty Start Date End Date Unallocated, Dane Galeas MD [facility] [place] [address] PCP - General 10/04/22 Justo Myers, RESEARCH LIBRARIAN [address] [place] [address] PCP - [facility] [employer] 07/14/23 Broaching Machine Set Up Operator Relationship Specialty Start Date End Date Unallocated, Dane Galeas MD [address] [facility] [place] [address] PCP - General 10/04/22 Justo Myers, RESEARCH LIBRARIAN [address] [place] [address] PCP - [facility] [employer] 07/14/23 Broaching Machine Set Up Operator Relationship Specialty Start Date End Date Unallocated, Dane Galeas MD [facility] [place] [address] PCP - General 10/04/22 Justo Myers, RESEARCH LIBRARIAN [address] [place] [id number] PCP - [facility] [employer] 07/14/23 Broaching Machine Set Up Operator Relationship Specialty Start Date End Date Unallocated, Dane Galeas MD [address] [place], [place] [address] [address] PCP - General 10/04/22 Justo Myers, RESEARCH LIBRARIAN [address] [place], [place] [id number] PCP - [facility] [employer] 07/14/23 Broaching Machine Set Up Operator Relationship Specialty Start Date End Date Unallocated, Dane Galeas MD [address] [place] [address] PCP - General 10/04/22 Justo Myers, RESEARCH LIBRARIAN [address] [place], [place] [id number] PCP - [facility] [employer] 07/14/23 Broaching Machine Set Up Operator Relationship Specialty Start Date End Date Unallocated, Dane Galeas MD [address] [place] [address] PCP - General 10/04/22 Justo Myers, RESEARCH LIBRARIAN [address] [id number] PCP - [facility] [employer] 07/14/23 Broaching Machine Set Up Operator Relationship Specialty Start Date End Date Unallocated, Dane Galeas MD [facility] [place] [address] PCP - General 10/04/22 Justo Myers, RESEARCH LIBRARIAN [address] [place], [place] [id number] PCP - [facility] [employer] 07/14/23 Broaching Machine Set Up Operator Relationship Specialty Start Date End Date Unallocated, Dane Galeas MD [address] [place] [address] PCP - General 10/04/22 Justo Myers, RESEARCH LIBRARIAN [address] [place] [address] PCP - [facility] [employer] 07/14/23 Broaching Machine Set Up Operator Relationship Specialty Start Date End Date Unallocated, Dane Galeas MD [address] [place] [address] PCP - General 10/04/22 Justo Myers, RESEARCH LIBRARIAN [address] [place] [address] PCP - [facility] [employer] 07/14/23 Broaching Machine Set Up Operator Relationship Specialty Start Date End Date Unallocated, Dane Galeas MD [address] [place] [address] PCP - General 10/04/22 Justo Myers, RESEARCH LIBRARIAN [address] [place] [address] PCP - [facility] [employer] 07/14/23 Broaching Machine Set Up Operator Relationship Specialty Start Date End Date Unallocated, Dane Galeas MD [address] [place] [address] PCP - General 10/04/22 Justo Myers, RESEARCH LIBRARIAN [address] [place] [address] PCP - [facility] [employer] 07/14/23 Broaching Machine Set Up Operator Relationship Specialty Start Date End Date Unallocated, Dane Galeas MD [address] [place] [address] PCP - General 10/04/22 Justo Myers, RESEARCH LIBRARIAN [address] [place] [address] PCP - [place] [facility] 07/14/23 Stormy Moy, SPANISH LITERATURE PROFESSOR-COMPOSING MACHINE OPERATOR/TENDER [address] [facility] [address] [place] [address] Nurse Practitioner Psychiatry 05/30/24 Broaching Machine Set Up Operator Relationship Specialty Start Date End Date Unallocated, Dane Galeas MD [address] [place] [address] PCP - General 10/04/22 Justo Myers, RESEARCH LIBRARIAN [address] [place], [place] [id number] PCP - [place] [employer] 07/14/23 Stormy Moy, SPANISH LITERATURE PROFESSOR-COMPOSING MACHINE OPERATOR/TENDER [address] [facility] [address] [place] [address] Nurse Practitioner Psychiatry 05/30/24 Broaching Machine Set Up Operator Relationship Specialty Start Date End Date Unallocated, Dane Galeas MD [address] [place] [address] PCP - General 10/04/22 Justo Myers, RESEARCH LIBRARIAN [address] [place], [place] [id number] PCP - [place] [employer] 07/14/23 Stormy Moy, SPANISH LITERATURE PROFESSOR-COMPOSING MACHINE OPERATOR/TENDER [address] [facility] [address] [place] [address] Nurse Practitioner Psychiatry 05/30/24 Broaching Machine Set Up Operator Relationship Specialty Start Date End Date Unallocated, Dane Galeas MD [address] [place] [address] PCP - General 10/04/22 Stormy Moy, SPANISH LITERATURE PROFESSOR-COMPOSING MACHINE OPERATOR/TENDER [address] [facility] [address] [place] [address] Nurse Practitioner Psychiatry 05/30/24 Broaching Machine Set Up Operator Relationship Specialty Start Date End Date Unallocated, [place] MD [place] [address] PCP - General 10/04/22 Stormy Moy, SPANISH LITERATURE [facility] [address] [facility] [address] [place] [address] Nurse Practitioner Psychiatry 05/30/24 Goals (unrecognized section and content) Goals may be documented in a n alternate section FOR RECORDS PERTAINING TO PATIENTS WHO ARE OR HAVE BEEN ENROLLED IN A CHEMICAL DEPENDENCY/SUBSTANCEABUSE PROGRAM, SOME INFORMATION MAY BE OMITTED. This clinical summary was aggregated from multiple sources. Caution should be exercised in using it in the provision of clinical care. This summary normalizes information from multiple sources, and as a consequence, information in this document may materially change the coding, format and clinical context of patient data. In addition, data may be omitted in some cases. CLINICAL DECISIONS SHOULD BE BASED ON THE PRIMARY CLINICAL RECORDS. [facility] [employer] [facility]. provides no warranty or guarantee of the accuracy or completeness of information in this document.
== END 2024-06-24 08:39 | disposition home or self-care (01) ==
LOC: EC 08:39
PROVIDERS: Visit Provider Orthopaedic Surgery
DX: M79.642 Pain in left hand (principal)
CPT/HCPCS: 73130